=== PATIENT | female | born 1955 | race American Indian/Alaskan Native ===

== ENCOUNTER 2016-11-02 19:35 | Emergency (ER) | payer OTHER ==
[2016-11-02 23:08] LABS: Anion Gap 20 mmol/L; B-Hydroxybutyrate 1.1 mg/dL (0.2-2.8); Blood Urea Nitrogen 20 mg/dL (7-17); Calcium 9.7 mg/dL (8.4-10.2); Carbon Dioxide 24 mmol/L (22-30); Chloride 91.6 mmol/L (98-107); Glucose 413 mg/dL (65-100); Sodium 131 mmol/L (137-145)
[2016-11-02 23:15] LABS: Basophils % (Auto) 0.8 % (0.0-1.8); Eosinophils % (Auto) 1.4 % (0.0-4.3); Hematocrit 39.3 % (30.3-42.9); Hemoglobin 12.5 gm/dl (10.1-14.3); Mean Corpuscular HGB Conc 32 % (30-34); Mean Corpuscular Volume 77 fl (79-97); Platelet Count 233 K/mm3 (140-440); Red Cell Distribution Width 15.3 % (13.2-15.2)
[2016-11-02 23:24] LABS: Mean Corpuscular Hemoglobin 25 pg (28-32)
[2016-11-03 00:01] LABS: Mucus,Urine FEW /HPF
[2016-11-03 00:42] LABS: Bilirubin,Urine Negative (Negative); Blood,Urine Negative (Negative); Ketones,Urine Negative (Negative)
[2016-11-03 00:43] LABS: Leukocyte Esterase,Urine Negative (Negative); Nitrite,Urine Negative (Negative); Protein,Urine <30 mg dL mg/dL (Negative); Urobilinogen,Urine 0.2 mg/dL (<2.0)
[2016-11-03 00:52] VITALS: BP 186/90
[2016-11-03] MEDS ORDERED: TYLENOL PO ONE (00:55)
--- NOTE | 2016-11-04 01:10 | ED Elopement Review ---
ED Pt Elopement review - Results review Lab results: Laboratory Tests 11/02/16 11/02/16 11/02/16 20:00 22:30 22:30 WBC 7.0 RBC 5.10 H Hgb 12.5 Hct 39.3 MCV 77 L MCH 25 L MCHC 32 RDW 15.3 H Plt Count 233 Lymph % (Auto) 35.4 H [place] % (Auto) 8.3 H Eos % (Auto) 1.4 Baso % (Auto) 0.8 Lymph # 2.5 [place] # 0.6 Eos # 0.1 Baso # 0.1 Seg Neutrophils % 54.1 Seg Neutrophils # 3.8 VBG pH Sodium 131 L Potassium 5.0 Chloride 91.6 L Carbon Dioxide 24 Anion Gap 20 BUN 20 H Creatinine 0.8 Estimated GFR > 60 BUN/Creatinine Ratio 25.00 Glucose 413 H POC Glucose 279 H Calcium 9.7 Urine Color Urine Turbidity Urine pH Ur Specific [place] Urine Protein Urine Glucose (UA) Urine Ketones Urine Blood Urine Nitrite Ur Reducing Substances Urine Bilirubin Urine Ictotest Urine Urobilinogen Ur Leukocyte Esterase Urine WBC (Auto) Urine RBC (Auto) U Epithel Cells (Auto) Urine Mucus Ketones 1.1 11/02/16 11/02/16 22:30 22:45 WBC RBC Hgb Hct MCV MCH MCHC RDW Plt Count Lymph % (Auto) [place] % (Auto) Eos % (Auto) Baso % (Auto) Lymph # [place] # Eos # Baso # Seg Neutrophils % Seg Neutrophils # VBG pH 7.289 L Sodium Potassium Chloride Carbon Dioxide Anion Gap BUN Creatinine Estimated GFR BUN/Creatinine Ratio Glucose POC Glucose Calcium Urine Color Yellow Urine Turbidity Clear Urine pH 6.0 Ur Specific [place] 1.025 Urine Protein <30 mg dl Urine Glucose (UA) Trace Urine Ketones Negative Urine Blood Negative Urine Nitrite Negative Ur Reducing Substances Not Reportable Urine Bilirubin Negative Urine Ictotest Not Reportable Urine Urobilinogen 0.2 Ur Leukocyte Esterase Negative Urine WBC (Auto) 4.0 Urine RBC (Auto) 1.0 U Epithel Cells (Auto) 3.0 Urine Mucus Few Ketones - Call Back decision Pt Call Back Decision: No action required
== END 2016-11-03 00:52 | disposition left against medical advice (07) ==
LOC: ED 19:35
DX: R51 Headache (principal); R42 Dizziness and giddiness; R11.2 Nausea with vomiting, unspecified; R19.7 Diarrhea, unspecified; Z53.21 Procedure and treatment not carried out due to patient leaving prior to being seen by health care provider
CPT/HCPCS: 36415; 80048; 81001; 82010; 82805; 82962; 85025

== ENCOUNTER 2016-11-03 07:44 | Emergency (ER) | payer OTHER ==
[2016-11-03] MEDS ORDERED: CATAPRES PO ONE (10:29)
[2016-11-03] MEDS ORDERED: NACL 0.9% 1000 ML 1,000 ML IV ONE (10:36)
[2016-11-03] MEDS ORDERED: ZOFRAN IV ONE (10:36)
--- NOTE | 2016-11-03 10:41 | Emergency Department Report ---
HPI - General Chief Complaint: Dizziness Time Seen by Provider: 11/03/16 10:27 - HPI HPI: Jiménez 25 The patient is a 61-year-old female presenting with a chief complaint of dizziness. The patient states her symptoms began yesterday morning she felt dizzy upon awakening. The patient states she stood up and felt to the ground but never lost consciousness. The patient states she checked her blood sugar and found to be 380. Patient states she drank water began having nausea and vomiting. The patient states she had 4 episodes of diarrhea yesterday. Patient states she continued to feel dizzy and nauseous and noticed that her blood pressure was elevated. Patient subsequently went to [facility] for evaluation last night and from there was sent to the ED P. Patient states she has had a frontal headache since last night. The patient states she's been compliant with all of her medications Location: [see above] Duration: [see above] Quality: Dizziness Severity: Moderate Modifying factors: [see above] Context: [see above] Mode of transportation: Unknown ED Past Medical Hx - Past Medical History Previous Medical History?: Yes Hx Hypertension: Yes Hx Heart Attack/AMI: Yes (X 1 IN 2016) Hx Diabetes: Yes Hx of Cancer: Yes (Colon CA status post resection) Hx Headaches / Migraines: Yes - Surgical History Past Surgical History?: Yes Additional Surgical History: Partial colon resection/ 2 CARDIAC STENTS - Family History Family history: no significant - Social History Smoking Status: Never Smoker Substance Use Type: None (denies illicit drug use) - Medications Home Medications: Home Medications Medication Instructions Recorded Confirmed Last Taken Type Ascorbic Acid [Vitamin C] 500 mg PO DAILY 11/03/16 11/03/16 11/02/16 History Aspirin [Aspirin BABY CHEW TAB] 81 mg PO QDAY 11/03/16 11/03/16 11/02/16 History AtorvaSTATin [Lipitor] 20 mg PO QHS 11/03/16 11/03/16 11/01/16 History Biotin 1,000 mcg PO DAILY 11/03/16 11/03/16 11/02/16 History Cholecalciferol (Vitamin D3) 5,000 unit PO DAILY 11/03/16 11/03/16 11/02/16 History [Vitamin D3] Clopidogrel [Plavix] 75 mg PO QDAY 11/03/16 11/03/16 11/02/16 History ISOSORBIDE MONOnitrate [Imdur ER] 30 mg PO DAILY 11/03/16 11/03/16 11/02/16 History Meclizine [Antivert] 25 mg PO TID PRN #20 tablet 11/03/16 Unknown Rx Metoprolol [Lopressor TAB] 50 mg PO BID 11/03/16 11/03/16 11/02/16 History Multivits Min/Iron/FA/Herb#186 1 each PO DAILY 11/03/16 11/03/16 11/02/16 History [Hair, Skin and Nails Caplet] Ondansetron [Zofran ODT TAB] 8 mg PO Q8HR #20 tab.rapdis 11/03/16 Unknown Rx Pantoprazole [Protonix] 40 mg PO QDAY 11/03/16 11/03/16 11/02/16 History Sertraline [Zoloft] 50 mg PO QDAY 11/03/16 11/03/16 11/02/16 History Turmeric Root Extract [Turmeric] 500 mg PO DAILY 11/03/16 11/03/16 11/02/16 History Vitamin B Complex [Super B-50 1 each PO DAILY 11/03/16 11/03/16 11/02/16 History Complex] glipiZIDE [glipiZIDE ER] 5 mg PO QAM 11/03/16 11/03/16 11/02/16 History metFORMIN [Glucophage] 500 mg PO BID 11/03/16 11/03/16 11/02/16 History ED Review of Systems ROS: Stated complaint: DIZZY/BP/DIABETIC Other details as noted in HPI Comment: All other systems reviewed and negative Constitutional: denies: chills, fever Eyes: denies: eye pain, eye discharge, vision change ENT: denies: ear pain, throat pain Respiratory: denies: cough, shortness of breath, wheezing Cardiovascular: denies: chest pain, palpitations Endocrine: no symptoms reported Gastrointestinal: nausea, vomiting, diarrhea Genitourinary: denies: urgency, dysuria, discharge Musculoskeletal: denies: back pain, joint swelling, arthralgia Skin: denies: rash, lesions Neurological: headache, other (dizziness) Psychiatric: denies: anxiety, depression Hematological/Lymphatic: denies: easy bleeding, easy bruising Physical Exam - Physical Exam Vital Signs: Vital Signs 11/03/16 11/03/16 07:51 09:10 Temperature 97.8 F Pulse Rate 86 81 Respiratory 20 16 Rate Blood Pressure 184/95 Blood Pressure 171/86 [Left] O2 Sat by Pulse 100 98 Oximetry Physical Exam: GENERAL: The patient is well-developed well-nourished female lying on stretcher not appearing to be in acute distress. [] HEENT: Normocephalic. Atraumatic. Extraocular motions are intact. Patient has moist mucous membranes. No nystagmus NECK: Supple. Trachea midline CHEST/LUNGS: Clear to auscultation. There is no respiratory distress noted. HEART/CARDIOVASCULAR: Regular. There is no tachycardia. There is no gallop rub or murmur. ABDOMEN: Abdomen is soft, nontender. Patient has normal bowel sounds. There is no abdominal distention. SKIN: There is no rash. There is no edema. There is no diaphoresis. NEURO: The patient is awake, alert, and oriented. The patient is cooperative. The patient has no focal neurologic deficits. The patient has normal speech. Cranial nerves II through XII grossly intact, no drift. No dysmetria noted with [id number] bilaterally MUSCULOSKELETAL: There is no evidence of acute injury. ED Course Vital Signs 11/03/16 11/03/16 07:51 09:10 Temperature 97.8 F Pulse Rate 86 81 Respiratory 20 16 Rate Blood Pressure 184/95 Blood Pressure 171/86 [Left] O2 Sat by Pulse 100 98 Oximetry ED Medical Decision Making - Lab Data Result diagrams: 11/03/16 12:07 11/03/16 12:07 Laboratory Tests 11/03/16 11/03/16 11/03/16 09:09 12:07 12:07 WBC 5.1 RBC 5.17 H Hgb 12.5 Hct 39.9 MCV 77 L MCH 24 L MCHC 31 RDW 15.5 H Plt Count 214 Lymph % (Auto) 34.2 [place] % (Auto) 8.7 H Eos % (Auto) 1.8 Baso % (Auto) 0.6 Lymph # 1.7 [place] # 0.4 Eos # 0.1 Baso # 0.0 Seg Neutrophils % 54.7 Seg Neutrophils # 2.8 Sodium 134 L Potassium 4.0 Chloride 97.0 L Carbon Dioxide 22 Anion Gap 19 BUN 15 Creatinine 0.6 L Estimated GFR > 60 BUN/Creatinine Ratio 25.00 Glucose 289 H POC Glucose 322 H Calcium 8.9 Total Creatine Kinase 61 CK-MB (CK-2) 1.6 CK-MB (CK-2) Rel Index 2.6 Laboratory Tests 11/03/16 11/03/16 11/03/16 09:09 12:07 12:07 WBC 5.1 RBC 5.17 H Hgb 12.5 Hct 39.9 MCV 77 L MCH 24 L MCHC 31 RDW 15.5 H Plt Count 214 Lymph % (Auto) 34.2 [place] % (Auto) 8.7 H Eos % (Auto) 1.8 Baso % (Auto) 0.6 Lymph # 1.7 [place] # 0.4 Eos # 0.1 Baso # 0.0 Seg Neutrophils % 54.7 Seg Neutrophils # 2.8 Sodium 134 L Potassium 4.0 Chloride 97.0 L Carbon Dioxide 22 Anion Gap 19 BUN 15 Creatinine 0.6 L Estimated GFR > 60 BUN/Creatinine Ratio 25.00 Glucose 289 H POC Glucose 322 H Calcium 8.9 Total Creatine Kinase 61 CK-MB (CK-2) 1.6 CK-MB (CK-2) Rel Index 2.6 Troponin T 11/03/16 12:07 WBC RBC Hgb Hct MCV MCH MCHC RDW Plt Count Lymph % (Auto) [place] % (Auto) Eos % (Auto) Baso % (Auto) Lymph # [place] # Eos # Baso # Seg Neutrophils % Seg Neutrophils # Sodium Potassium Chloride Carbon Dioxide Anion Gap BUN Creatinine Estimated GFR BUN/Creatinine Ratio Glucose POC Glucose Calcium Total Creatine Kinase CK-MB (CK-2) CK-MB (CK-2) Rel Index Troponin T < 0.010 - EKG Data -: EKG Interpreted by Mt EKG shows normal: sinus rhythm Rate: normal - EKG Data When compared to previous EKG there are: no significant change Interpretation: unchanged when compared t (05/26/2011) - Radiology Data Radiology results: report reviewed (CT head), image reviewed (CT head) CT head (read by radiologist)-no acute intracranial process - Differential Diagnosis hypertensive urgency, vertigo, Critical care attestation.: If time is entered above; I have spent that time in minutes in the direct care of this critically ill patient, excluding procedure time. ED Disposition Clinical Impression: Headache, Dizziness Disposition: DISCHARGED TO HOME OR SELFCARE Is pt being admited?: No Does the pt Need Aspirin: No Condition: Stable Instructions: Acute Headache (ED), Dizziness (ED), Vertigo (ED) Additional Instructions: Return to the emergency department immediately should you develop worsening symptoms, fever, inability to tolerate food or liquid or any other concerns. Prescriptions: Meclizine [Antivert] 25 mg PO TID PRN #20 tablet PRN Reason: Vertigo Ondansetron [Zofran ODT TAB] 8 mg PO Q8HR #20 tab.vikas Referrals: PRIMARY CARE, [Primary Care Provider] - 3-5 Days AMANUEL BURGESS MD [Staff Physician] - 3-5 Days (Dr. Burgess is a neurologist. Please follow up with him for further evaluation) Time of Disposition: 13:27
--- NOTE | 2016-11-03 10:56 | Cat Scan Report ---
CT HEAD WITHOUT CONTRAST: HISTORY: Headache. Serial contiguous axial images were obtained through the cranium. Intravenous contrast material was not administered. The ventricles are normal in size and appearance. There is no mass effect or midline shift. No evidence for hemorrhage or extra-axial fluid collection. 1 cm chronic focal infarct in the left bowden radiata and 1.6 x 0.6 cm focal infarct in the left subinsular region are noted. No mass lesion is seen. The mastoid air cells and visualized portions of the sinuses are normal. IMPRESSION: No acute intracranial process. Chronic focal infarcts in the left bowden radiata and left subinsular region. These findings are new since the CT dated 05/26/11.
[2016-11-03 12:35] LABS: Basophils % (Auto) 0.6 % (0.0-1.8); Eosinophils % (Auto) 1.8 % (0.0-4.3); Hematocrit 39.9 % (30.3-42.9); Hemoglobin 12.5 gm/dl (10.1-14.3); Mean Corpuscular HGB Conc 31 % (30-34); Mean Corpuscular Volume 77 fl (79-97); Platelet Count 214 K/mm3 (140-440); Red Blood Count 5.17 M/mm3 (3.65-5.03); Red Cell Distribution Width 15.5 % (13.2-15.2); White Blood Count 5.1 K/mm3 (4.5-11.0)
[2016-11-03 12:39] LABS: Mean Corpuscular Hemoglobin 24 pg (28-32)
[2016-11-03 12:51] LABS: Anion Gap 19 mmol/L; Blood Urea Nitrogen 15 mg/dL (7-17); Calcium 8.9 mg/dL (8.4-10.2); Carbon Dioxide 22 mmol/L (22-30); Creatine Kinase 61 units/L (30-135); Creatine Kinase MB 1.6 ng/mL (0.0-4.0); Glucose 289 mg/dL (65-100); Sodium 134 mmol/L (137-145)
[2016-11-03 13:46] VITALS: BP 165/76
== END 2016-11-03 13:45 | disposition home or self-care (01) ==
LOC: ED 07:44
DX: R51 Headache (principal); R42 Dizziness and giddiness; I10 Essential (primary) hypertension; I25.2 Old myocardial infarction; E11.9 Type 2 diabetes mellitus without complications; G43.909 Migraine, unspecified, not intractable, without status migrainosus; Z85.038 Personal history of other malignant neoplasm of large intestine
CPT/HCPCS: 36415; 70450; 80048; 82550; 82553; 82962; 84484; 85025; 93005; 93010; 96361; 96374; 99284; J2405; J7030

== ENCOUNTER 2017-05-18 07:34 | Day surgery (SDC) | payer OTHER ==
[2017-05-18 08:25] LABS: Basophils % (Auto) 0.3 % (0.0-1.8); Eosinophils % (Auto) 1.5 % (0.0-4.3); Hematocrit 33.3 % (30.3-42.9); Hemoglobin 10.7 gm/dl (10.1-14.3); Mean Corpuscular HGB Conc 32 % (30-34); Mean Corpuscular Volume 75 fl (79-97); Platelet Count 242 K/mm3 (140-440); Red Blood Count 4.47 M/mm3 (3.65-5.03); Red Cell Distribution Width 15.8 % (13.2-15.2); White Blood Count 5.6 K/mm3 (4.5-11.0)
[2017-05-18 08:33] LABS: Mean Corpuscular Hemoglobin 24 pg (28-32)
[2017-05-18 08:37] LABS: INR 0.95 (0.87-1.13)
[2017-05-18 08:45] LABS: Anion Gap 19 mmol/L; BUN/Creatinine Ratio 24.44; Blood Urea Nitrogen 22 mg/dL (7-17); Calcium 8.9 mg/dL (8.4-10.2); Carbon Dioxide 27 mmol/L (22-30); Chloride 93.7 mmol/L (98-107); Glucose 275 mg/dL (65-100); Potassium 3.7 mmol/L (3.6-5.0); Sodium 136 mmol/L (137-145)
[2017-05-18] MEDS ORDERED: NACL 0.9% 500 ML 500 ML IV SCH (09:00)
[2017-05-18] MEDS ORDERED: HEPARIN/NS 5000 UNIT/500ML(CATH LAB) 1,000 ML IR ONE (10:01)
[2017-05-18] MEDS ORDERED: VERSED ONE (10:01)
[2017-05-18] MEDS ORDERED: SUBLIMAZE ONE (10:02)
[2017-05-18] MEDS ORDERED: XYLOCAINE 2% INFILTRATI ONE (10:04)
[2017-05-18] MEDS ORDERED: HEPARIN 10,000 UNITS/10 ML ONE (10:16)
[2017-05-18] MEDS ORDERED: NACL 0.9% 1000 ML 1,000 ML IV SCH (11:00)
--- NOTE | 2017-05-18 11:40 | Discharge Summary ---
Short Stay Discharge Plan Activity: advance as tolerated Weight Bearing Status: Partial Weight Bearing Diet: low fat, low cholesterol, low salt, diabetic Wound: keep clean and dry Special Instructions: no heavy lifting (3 days), hold Metformin (48hrs) Follow up with: LUIS MANUEL MD [Primary Care Provider] - 7 Days JACOB ABRAMS MD [Staff Physician] - 7 Days
[2017-05-18] MEDS ORDERED: ULTRAM PO PRN (13:35)
--- NOTE | 2017-05-18 14:02 | Cardiac Catherization Report ---
CARDIAC CATHETERIZATION REPORT REASON FOR PROCEDURE: History of coronary artery disease, chest pain and abnormal thallium stress test. PROCEDURE: The patient was prepped and draped in a sterile fashion after informed consent. The right femoral artery was entered using the Seldinger technique followed by placement of a 6-[place] sheath. Selective left and right coronary angiography was performed using #4 right and left Alyssia catheters. Angiography of the left ventricle was performed using a pigtail catheter. The catheters were removed, sheath removed, and hemostasis achieved using an Angio-Seal device. The patient was returned to the postprocedure unit in stable condition. There were no complications. FINDINGS: HEMODYNAMICS: Left ventricular end diastolic pressure was 18. This was following coronary angiography. Ascending aortic pressure 160/79. There was no significant pressure gradient on pullback across the aortic valve. CORONARY ANGIOGRAPHY: The left main coronary artery was free of significant disease. The left anterior descending artery contained an ostial, 30-40% stenosis. Following that, another 60-70% stenosis of the proximal LAD was noted, just after the origin of a medium size first diagonal branch. The mid LAD was also notable for another, 70-80% stenosis, just following the origin of another mid diagonal branch. The proximal circumflex artery was notable for a long, irregular 70-80% stenosis. Following this, there was a stent located in the mid portion of the mid obtuse marginal branch. The stented segment was notable for a 70-80% in-stent restenosis. The right coronary artery was a relatively small caliber, but dominant vessel. There was a patent stent in the proximal right coronary artery, but following that, there was a long segment of severe diffuse disease with an up to 85-90% luminal stenosis of the mid vessel before the acute margin. There was overall, mild left ventricular systolic dysfunction with ejection fraction 40-45%. There was a focal segment of severe hypokinesis of the mid inferior wall. CONCLUSIONS: 1. Severe 3-vessel coronary disease. 2. Moderately severe in-stent restenosis of the mid obtuse marginal artery stent. 3. Patent proximal right coronary artery stent. 4. Additional major finding is of severe progression of multivessel disease outside the stented segments. 5. Mild left ventricular systolic dysfunction, ejection fraction 40-45%. RECOMMENDATIONS: In recognition of the patient's progressive De Duglas disease in multiple vessels, diabetic status and underlying left ventricular dysfunction, multivessel revascularization with coronary artery bypass surgery is likely the optimal strategy. JOB# [id number] CAROLINE/TAMMY
[2017-05-18 14:20] VITALS: BP 128/63
== END 2017-05-18 14:30 | disposition home or self-care (01) ==
LOC: CATHLABREC 07:34
PROVIDERS: ATTEND Internal Medicine Cardiovascular Disease
DX: I25.10 Atherosclerotic heart disease of native coronary artery without angina pectoris (principal); E11.9 Type 2 diabetes mellitus without complications; K21.9 Gastro-esophageal reflux disease without esophagitis; E78.5 Hyperlipidemia, unspecified; I10 Essential (primary) hypertension; Z88.8 Allergy status to other drugs, medicaments and biological substances; Z79.84 Long term (current) use of oral hypoglycemic drugs; Z79.899 Other long term (current) drug therapy; Z79.82 Long term (current) use of aspirin; Z79.01 Long term (current) use of anticoagulants; Z85.038 Personal history of other malignant neoplasm of large intestine; Z95.5 Presence of coronary angioplasty implant and graft; Z98.890 Other specified postprocedural states; Z82.49 Family history of ischemic heart disease and other diseases of the circulatory system
CPT/HCPCS: 36415; 80048; 85025; 85610; 85730; 93005; 93010; 93458; C1760; C1894; J1644; J2250; J3010; J7040; Q9967

== ENCOUNTER 2018-01-08 12:07 | Day surgery (SDC) | payer OTHER ==
[2018-01-08] MEDS ORDERED: NACL 0.9% 1000 ML 1,000 ML IV SCH (14:00)
--- NOTE | 2018-01-08 15:07 | Anesthesia Day of Surgery ---
Anesthesia Day of Surgery - Day of Surgery Patient Examined: Yes Patient H&P Reviewed: Yes Patient is NPO: Yes Beta Blockers: Yes
--- NOTE | 2018-01-08 15:07 | Anesthesia Consultation ---
Anesthesia Consult and Med Hx Date of service: 01/08/18 - Airway Anesthetic Teeth Evaluation: Good, Chipped (upper front) ROM Head & Neck: Adequate Mental/Hyoid Distance: Adequate Mallampati Class: Class II Intubation Access Assessment: Probably Good - Pre-Operative Health Status ASA Pre-Surgery Classification: ASA3 Proposed Anesthetic Plan: MAC - Pulmonary Hx Smoking: No Hx Sleep Apnea: No - Cardiovascular System Hx Hypertension: Yes Hx Coronary Artery Disease: Yes (CABG x 3 (05/2017)) Hx Heart Attack/AMI: Yes (OCTOBER 2015) Hx Angina: Yes Hx Percutaneous Transluminal Coronary Angioplasty (PTCA): Yes Hx Peripheral Vascular Disease: No - Central Nervous System Hx Psychiatric Problems: Yes - Endocrine Hx Non-Insulin Dependent Diabetes: Yes - Hematic Hx Anemia: No Hx Sickle Cell Disease: No - Other Systems Hx Alcohol Use: No Hx Substance Use: No Hx Cancer: Yes
[2018-01-08] MEDS ORDERED: DIPRIVAN 10 MG/ML IV ONE ×2 (16:09)
[2018-01-08] MEDS ORDERED: WATER FOR IRRIG STERILE ONE (16:24)
[2018-01-08 17:26] VITALS: BP 135/82
--- NOTE | 2018-01-08 18:15 | Operative Report ---
Operative Report Operative Report: Date of procedure: 01/08/2018 Procedure: Colonoscopy with Multiple Snare polypectomies,Hot Biopsy Polypectomies, Ablation of multiple diminutive rectal polyps and Submucosal injection of multiple sigmoid colon polyps. Attending physician: Real Santoro MD Melter Supervisor: Real Santoro MD Indication: Patient is a 62-year-old female who presents for screening colonoscopy. This colonoscopy serves to evaluate patient so that treatment may be directed based on the findings. Consent: Informed consent was obtained after advising the patient and family regarding nature of this procedure, its indications, potential benefits as well as possible complications including but not limited to bleeding perforation and adverse reaction to medication, infection as well as other cardiopulmonary complications. An informed written and verbal consent was then obtained after due opportunity was provided for questions and answers. Monitoring: Patient was monitored continuously with pulse oximetry and electrocardiographic recordings as well as blood pressure recordings. Vital signs remained stable throughout this procedure with no untoward events. Preoperative assessment: Patient was assessed immediately prior to this procedure for capacity to tolerate monitored anesthesia care and moderate sedation as well as general anesthesia. Patient's ASA classification is 2, Mallampati class is 2, Hyomental distance is 3. Instrument: Kidlandian video colonoscope Medications: Propofol given intravenously in divided doses. For details please refer to anesthesia records. Description of procedure: Patient was placed in the left lateral decubitus position after achieving sedation, a digital rectal examination was performed following which the colonoscope was introduced into the anal verge and advanced to the cecum which was identified by the cecal valve, the appendiceal orifice, as well as by the cecal strap and direct transillumination. The colonoscope was subsequently withdrawn with careful inspection of all mucosal surfaces. Patient tolerated this procedure well and was subsequently taken to the recovery room. The following findings were noted. Findings: Patient had thick liquid stool seen in various sections of the colon which was vigorously irrigated. There were 2 broad-based sessile polyps seen in the sigmoid colon. These were elevated with submucosal injection of saline and subsequently removed by snare electrocautery. Both polyps were retrieved. There was a 7-8 mm polyp which was sessile in the transverse colon and was removed by hot biopsy polypectomy. There were multiple diminutive flat polyps in the rectum which were ablated. In all there were 3 diminutive flat polyps in the rectum. Patient was noted to have internal hemorrhoids seen on the retroflexed view at the anal verge. Impression: Sigmoid colon polyps status post submucosal injection of saline and snare polypectomy . Transverse colon polyp status post hot biopsy polypectomy. Rectal polyps status post ablation. Internal hemorrhoids. Retained stool Plan: Follow pathology report. High-fiber diet. Repeat colonoscopy in 5 years if polyps are adenomatous
--- NOTE | 2018-01-08 18:16 | Discharge Summary ---
Short Stay Discharge Plan Activity: advance as tolerated Weight Bearing Status: Weight Bear as Tolerated Diet: regular Additional Instructions: Post Sedation D/C Instructions When you return home you may resume your regular diet unless otherwise directed. Go directly home from the hospital and rest quietly. You may resume normal activities tomorrow. Do NOT drive, return to work, operate any machinery or make any important personal or business decisions today. Do NOT drink any alcohol or take nerve or sleeping drugs. They add to the effects of the medicine still present in your body. Follow up with: LUIS MANUEL MD [Primary Care Provider] - 7 Days
== END 2018-01-08 17:20 | disposition home or self-care (01) ==
LOC: GIO 12:07
PROVIDERS: ATTEND Internal Medicine Gastroenterology
DX: D12.5 Benign neoplasm of sigmoid colon (principal); K63.5 Polyp of colon; K64.8 Other hemorrhoids; K59.00 Constipation, unspecified; I10 Essential (primary) hypertension; I25.10 Atherosclerotic heart disease of native coronary artery without angina pectoris; I25.2 Old myocardial infarction; E11.9 Type 2 diabetes mellitus without complications; Z90.710 Acquired absence of both cervix and uterus; Z98.890 Other specified postprocedural states; Z90.49 Acquired absence of other specified parts of digestive tract; Z79.82 Long term (current) use of aspirin; Z88.8 Allergy status to other drugs, medicaments and biological substances; Z79.899 Other long term (current) drug therapy; Z95.1 Presence of aortocoronary bypass graft
CPT/HCPCS: 45384; 45388; 45390; 82962; 88305; J2704; J7030

== ENCOUNTER 2019-04-30 04:03 | Inpatient (IN) | payer OTHER ==
[2019-04-30 06:41] LABS: Basophils % (Auto) 0.8 % (0.0-1.8); Eosinophils # (Auto) 0.2 K/mm3 (0.0-0.4); Eosinophils % (Auto) 2.6 % (0.0-4.3); Hematocrit 33.6 % (30.3-42.9); Hemoglobin 10.6 gm/dl (10.1-14.3); Lymphocytes # (Auto) 1.7 K/mm3 (1.2-5.4); Lymphocytes % (Auto) 29.1 % (13.4-35.0); Mean Corpuscular HGB Conc 32 % (30-34); Mean Corpuscular Volume 76 fl (79-97); Monocytes # (Auto) 0.5 K/mm3 (0.0-0.8); Monocytes % (Auto) 8.7 % (0.0-7.3); Platelet Count 216 K/mm3 (140-440); Red Blood Count 4.43 M/mm3 (3.65-5.03); Red Cell Distribution Width 16.3 % (13.2-15.2)
--- NOTE | 2019-04-30 06:48 | XRay Report ---
CHEST 2 VIEWS INDICATION / CLINICAL INFORMATION: sob. COMPARISON: None available. FINDINGS: SUPPORT DEVICES: None. HEART / MEDIASTINUM: The cardiac silhouette is mildly enlarged with sternotomy changes. LUNGS / PLEURA: Diffuse bilateral pulmonary opacities are present without a significant pleural effus ion. No pneumothorax. ADDITIONAL FINDINGS: No significant additional findings. IMPRESSION: 1. Nonspecific diffuse bilateral pulmonary opacities could represent chronic interstitial lung diseas e or an acute infiltrative process. Please correlate with the clinical findings. 2. Mild cardiomegaly. Signer Name: Yuri Mckeon MD Signed: 04/30/2019 6:44 AM Workstation Name: [id number]
--- NOTE | 2019-04-30 06:57 | Emergency Department Report ---
ED Chest Pain HPI - General Chief Complaint: Dyspnea/Respdistress Stated Complaint: MARIBETH Time Seen by Provider: 04/30/19 06:10 Source: patient, old records reviewed (cath here 05/18/17 prior to cabg EF 40- 45%, severe 3 vessel dz ) Mode of arrival: Ambulatory Limitations: No Limitations - History of Present Illness Initial Comments: 63-year-old female with a past medical history of diabetes, CAD with cardiac stent 2 and CABG 3, hypertension, and CHF with last documented EF of 40-45% since the hospital complains of intermittent chest pain and shortness of breath for 3 days. Patient has been experiencing intermittent substernal chest pressure while at rest for the past 3 days. Positive associated dyspnea and diaphoresis with episodes. Increased fatigue reported. She denies nausea, vomiting, palpitations, or syncope. She is also experiencing increased swelling to her ankles and feet, dyspnea on exertion, and this evening at 3 AM woke up from sleep short of breath. At her baseline patient is able to lay flat and states she is not currently on diuretic treatment however she has been on diuretics in the past. She has been noncompliant with her diabetes medication Victoza and atorvastatin 1 week but has otherwise been compliant with her other medications which include aspirin and Plavix. She complains of occasional nonproductive cough denies fever or chills. Traveling Operator: Dr. Chavira - Related Data Home Medications Medication Instructions Recorded Confirmed Last Taken Aspirin [Aspirin BABY CHEW TAB] 81 mg PO QDAY 11/03/16 01/08/18 01/03/18 AtorvaSTATin [Lipitor] 20 mg PO QHS 11/03/16 01/08/18 01/06/18 Metoprolol [Lopressor TAB] 50 mg PO BID 11/03/16 01/08/18 01/08/18 09:30 Pantoprazole [Protonix TAB] 40 mg PO QDAY 11/03/16 01/08/18 01/06/18 Sertraline [Zoloft] 50 mg PO HS 11/03/16 01/08/18 01/06/18 Clopidogrel Bisulfate [Clopidogrel] 75 mg PO DAILY 08/04/17 01/08/18 01/03/18 Liraglutide [Victoza 2-Hunter] 1.2 mg SQ QHS 01/08/18 01/08/18 01/06/18 Losartan [Cozaar] 50 mg PO BID 01/08/18 01/08/18 01/08/18 09:30 Metformin HCl [Metformin HCl ER] 1,000 mg PO QDAY 01/08/18 01/08/18 01/06/18 Allergies Allergy/AdvReac Type Severity Reaction Status Date / Time lisinopril AdvReac COUGH Verified 01/08/18 13:53 Heart Score - HEART Score History: Moderately suspicious EKG: Normal Age: 45-65 Risk factors: > 3 risk factors or hx of atherosclerotic disease Troponin: < normal limit HEART Score: 4 ED Review of Systems ROS: Stated complaint: MARIBETH Other details as noted in HPI Comment: All other systems reviewed and negative ED Past Medical Hx - Past Medical History Previous Medical History?: Yes Hx Hypertension: Yes Hx Heart Attack/AMI: Yes (OCTOBER 2015) Hx Congestive Heart Failure: No Hx Diabetes: Yes Hx Sickle Cell Disease: No Hx Headaches / Migraines: Yes Hx HIV: No - Surgical History Past Surgical History?: Yes Hx Coronary Stent: Yes (x2) Hx Open Heart Surgery: Yes (2017 CABAG x 3) Additional Surgical History: Partial colon resection/ 2 CARDIAC STENTS - Social History Smoking Status: Never Smoker Substance Use Type: None - Medications Home Medications: Home Medications Medication Instructions Recorded Confirmed Last Taken Type Aspirin [Aspirin BABY CHEW TAB] 81 mg PO QDAY 11/03/16 01/08/18 01/03/18 History AtorvaSTATin [Lipitor] 20 mg PO QHS 11/03/16 01/08/18 01/06/18 History Metoprolol [Lopressor TAB] 50 mg PO BID 11/03/16 01/08/18 01/08/18 09:30 History Pantoprazole [Protonix TAB] 40 mg PO QDAY 11/03/16 01/08/18 01/06/18 History Sertraline [Zoloft] 50 mg PO HS 11/03/16 01/08/18 01/06/18 History Clopidogrel Bisulfate [Clopidogrel] 75 mg PO DAILY 08/04/17 01/08/18 01/03/18 History Liraglutide [Victoza 2-Hunter] 1.2 mg SQ QHS 01/08/18 01/08/18 01/06/18 History Losartan [Cozaar] 50 mg PO BID 01/08/18 01/08/18 01/08/18 09:30 History Metformin HCl [Metformin HCl ER] 1,000 mg PO QDAY 01/08/18 01/08/18 01/06/18 History ED Physical Exam - General Limitations: No Limitations - Other Other exam information: General: No limitations, patient is alert in no acute distress Head exam: Atraumatic, normocephalic Eyes exam: Normal appearance ENT: Moist mucous membrane Neck exam: Normal inspection, full range of motion, no meningismus nontender Respiratory exam: Bibasilar crackles on exam without wheezing, rales, tachypnea, or accessory muscle use Cardiovascular: Normal rate and rhythm, CABG scar noted Abdomen: Soft, nondistended, and nontender, with normal bowel sounds, no rebound, or guarding Extremity: Full range of motion, trace to 1+ pitting edema to ankles and distal leg. No calf tenderness on examination Back: Normal Inspection, full range of motion, no tenderness Neurologic: Alert, oriented x3, cranial nerves intact, no motor or sensory deficit Psychiatric: normal affect, normal mood Skin: Warm, dry, intact ED Course Vital Signs 04/30/19 04/30/19 04/30/19 04:04 04:08 04:22 Temperature 97.4 F L 97.4 F L Pulse Rate 82 82 82 Respiratory 18 18 14 Rate Blood Pressure 184/96 184/94 O2 Sat by Pulse 92 92 93 Oximetry 04/30/19 04/30/19 04/30/19 04:30 04:45 05:00 Temperature Pulse Rate 72 74 71 Respiratory 17 25 H 29 H Rate Blood Pressure 166/85 167/81 165/79 O2 Sat by Pulse 94 96 93 Oximetry 04/30/19 04/30/19 04/30/19 05:15 05:30 05:45 Temperature Pulse Rate 70 72 70 Respiratory 28 H 24 24 Rate Blood Pressure 166/78 173/84 162/80 O2 Sat by Pulse 94 96 95 Oximetry 04/30/19 04/30/19 04/30/19 06:00 06:31 07:00 Temperature Pulse Rate 70 76 71 Respiratory 21 29 H 24 Rate Blood Pressure 162/80 162/80 168/79 O2 Sat by Pulse 96 98 96 Oximetry 04/30/19 07:30 Temperature Pulse Rate 65 Respiratory 24 Rate Blood Pressure 168/72 O2 Sat by Pulse 95 Oximetry ED Medical Decision Making - Lab Data Result diagrams: 04/30/19 06:28 04/30/19 06:28 - EKG Data -: EKG Interpreted by Me EKG shows normal: sinus rhythm, axis (qrs 41), QRS complexes (qrsd 89), ST-T waves (no stemi) Rate: normal (69) - EKG Data When compared to previous EKG there are: no significant change - Radiology Data Radiology results: report reviewed CHEST 2 VIEWS INDICATION / CLINICAL INFORMATION: sob. COMPARISON: None available. FINDINGS: SUPPORT DEVICES: None. HEART / MEDIASTINUM: The cardiac silhouette is mildly enlarged with sternotomy changes. LUNGS / PLEURA: Diffuse bilateral pulmonary opacities are present without a significant pleural effusion. No pneumothorax. ADDITIONAL FINDINGS: No significant additional findings. IMPRESSION: 1. Nonspecific diffuse bilateral pulmonary opacities could represent chronic interstitial lung disease or an acute infiltrative process. Please correlate with the clinical findings. 2. Mild cardiomegaly. - Medical Decision Making Clinically patient appears to have CHF exacerbation given a combination of symptoms. Also possibility of unstable angina. Patient does not have chest pain currently in the ED and there are no signs of ST elevation PR, ST depression, or elevated troponin. She received 1 dose of IV Lasix and by mouth aspirin. Case discussed with warp dresser. Hospitalist informed for admission nitro paste placed to chest wall as well - Differential Diagnosis CHF exacerbation, unstable angina, PR, bronchitis, pneumonia Critical Care Time: No Critical care attestation.: If time is entered above; I have spent that time in minutes in the direct care of this critically ill patient, excluding procedure time. ED Disposition Clinical Impression: Chest pain, Dyspnea, CHF exacerbation, S/P CABG x 3, H/O heart artery stent Disposition: OP ADMIT IP TO THIS HOSP Is pt being admited?: Yes Condition: Stable Instructions: Chest Pain (ED) Referrals: PRIMARY CARE, [Primary Care Provider] - 3-5 Days Time of Disposition: 07:16 (Dr Vaughn/hosp)
[2019-04-30 07:05] LABS: Alanine Aminotransferase 32 units/L (7-56); Albumin 3.6 g/dL (3.9-5); BUN/Creatinine Ratio 11; Blood Urea Nitrogen 14 mg/dL (7-17); Hemolysis Index 3
[2019-04-30] MEDS ORDERED: LASIX IV ONE (07:09)
[2019-04-30] MEDS ORDERED: ASPIRIN PO ONE (07:15)
[2019-04-30] MEDS ORDERED: NITRO-BID 2% TP ONE ×2 (08:16→08:47)
[2019-04-30 09:25] LABS: Bilirubin,Urine NEG (Negative); Blood,Urine NEG (Negative); Color,Urine Straw (Yellow); Protein,Urine <15 mg/dL mg/dL (Negative); Urobilinogen,Urine < 2.0 mg/dL (<2.0)
[2019-04-30] MEDS ORDERED: TYLENOL PO PRN (09:32)
[2019-04-30] MEDS ORDERED: D50W (25GM) Syringe IV PRN ×2 (09:32→13:06)
[2019-04-30] MEDS ORDERED: NARCAN 0.4 MG/1 ML IV PRN (09:32)
[2019-04-30] MEDS ORDERED: MORPHINE IV PRN (09:32)
[2019-04-30] MEDS ORDERED: SODIUM CHLORIDE FLUSH SYRINGE 10 ML IV PRN (09:32)
[2019-04-30] MEDS ORDERED: ZOFRAN IV PRN (09:32)
[2019-04-30] MEDS ORDERED: NITROSTAT SL PRN (09:32)
[2019-04-30 09:33] LABS: WBC,Urine < 1.0 /HPF (0.0-6.0)
[2019-04-30] MEDS ORDERED: PEPCID IV SCH (10:00)
[2019-04-30] MEDS ORDERED: PLAVIX PO SCH (10:00)
[2019-04-30] MEDS ORDERED: ALUM-MAG HYDROX-SIMETH 200-200-20MG/5ML PO PRN (10:00)
[2019-04-30] MEDS ORDERED: COZAAR PO SCH (11:00)
--- NOTE | 2019-04-30 11:29 | Consultation ---
History of Present Illness Consult date: 04/30/19 Consult reason: congestive heart failure, shortness of breath History of present illness: This is a 63-year old woman with coronary artery disease with 3 vessel bypass surgery done at [place] in 2017. A follow-up echocardiogram a year ago reports a normal left ventricular systolic function, ejection fraction 55%. Patient presents to this hospital with complaint of progressive shortness of breath and lower extremity edema. She denies chest pain and denies palpitations. Chest x- ray reports mild interstitial edema. An ECG shows sinus rhythm, no acute ischemic changes. A cardiac consultation has been requested for evaluation of CHF. Medications and Allergies Allergies Allergy/AdvReac Type Severity Reaction Status Date / Time lisinopril AdvReac COUGH Verified 01/08/18 13:53 Home Medications Medication Instructions Recorded Confirmed Last Taken Type Aspirin [Aspirin BABY CHEW TAB] 81 mg PO QDAY 11/03/16 04/30/19 01/03/18 History AtorvaSTATin [Lipitor] 20 mg PO QHS 11/03/16 04/30/19 01/06/18 History Metoprolol [Lopressor TAB] 50 mg PO BID 11/03/16 04/30/19 01/08/18 09:30 History Pantoprazole [Protonix TAB] 40 mg PO QDAY 11/03/16 04/30/19 01/06/18 History Sertraline [Zoloft] 50 mg PO HS 11/03/16 04/30/19 01/06/18 History Clopidogrel Bisulfate [Clopidogrel] 75 mg PO DAILY 08/04/17 04/30/19 01/03/18 History Liraglutide [Victoza 2-Hunter] 1.2 mg SQ QHS 01/08/18 04/30/19 01/06/18 History Losartan [Cozaar] 50 mg PO BID 01/08/18 04/30/19 01/08/18 09:30 History Metformin HCl [Metformin HCl ER] 500 mg PO QDAY 01/08/18 04/30/19 01/06/18 H istory Active Meds: Active Medications Acetaminophen (Tylenol) 650 mg PO Q4H PRN PRN Reason: Pain MILD(1-3)/Fever >100.5/CALIXTO Al Hydrox/Mg Hydrox/Simethicone (Alum-Mag Hydrox-Simeth 760-723-05qt/5ml) 30 ml PO Q4H PRN PRN Reason: Indigestion Aspirin (Baby Aspirin) 81 mg PO QDAY COUNT INCLUDES THE [facility] Atorvastatin Calcium (Lipitor) 20 mg PO QHS COUNT INCLUDES THE [facility] Clopidogrel Bisulfate (Plavix) 75 mg PO QDAY COUNT INCLUDES THE [facility] Dextrose (D50w (25gm) Syringe) 50 ml IV PRN PRN PRN Reason: Hypoglycemia Enoxaparin Sodium (Lovenox) 40 mg SUB-Q QDAY COUNT INCLUDES THE [facility] Furosemide (Lasix) 20 mg IV BID@0600,1800 COUNT INCLUDES THE [facility] Losartan Potassium (Cozaar) 50 mg PO BID COUNT INCLUDES THE [facility] Metoprolol Tartrate (Lopressor) 50 mg PO BID COUNT INCLUDES THE [facility] Morphine Sulfate (Morphine) 2 mg IV Q4H PRN PRN Reason: Pain, Moderate (4-6) Naloxone HCl (Narcan 0.4 Mg/1 Ml) 0.1 mg IV Q2MIN PRN PRN Reason: Res Rate </= 8 or 02 SAT < 92% Nitroglycerin (Nitrostat) 0.4 mg SL .Q5MIN PRN PRN Reason: Chest Pain Ondansetron HCl (Zofran) 4 mg IV Q8H PRN PRN Reason: Nausea And Vomiting Oxycodone/Acetaminophen (Percocet 5/325) 1 tab PO Q6H PRN PRN Reason: Pain, Moderate (4-6) Pantoprazole Sodium (Protonix) 40 mg PO QDAY COUNT INCLUDES THE [facility] Potassium Chloride (K-Dur) 10 meq PO BID NASRIN Sertraline HCl (Zoloft) 50 mg PO HS COUNT INCLUDES THE [facility] Sodium Chloride (Sodium Chloride Flush Syringe 10 Ml) 10 ml IV BID COUNT INCLUDES THE [facility] Sodium Chloride (Sodium Chloride Flush Syringe 10 Ml) 10 ml IV PRN PRN PRN Reason: LINE FLUSH Zolpidem Tartrate (Ambien) 5 mg PO QHS PRN PRN Reason: Insomnia Physical Examination Vital Signs Temp Pulse Resp BP Pulse Ox 97.4 F L 82 18 184/96 92 04/30/19 04:04 04/30/19 04:04 04/30/19 04:04 04/30/19 04:04 04/30/19 04:04 General appearance: no acute distress HEENT: Positive: PERRL Neck: Positive: trachea midline Cardiac: Positive: Reg Rate and Rhythm Lungs: Positive: Decreased Breath Sounds Neuro: Positive: Grossly Intact Extremities: Absent: edema Results 04/30/19 06:28 04/30/19 06:28 Cardiac Enzymes 04/30/19 Range/Units 06:28 AST 34 (5-40) units/L CBC 04/30/19 Range/Units 06:28 WBC 5.8 (4.5-11.0) K/mm3 RBC 4.43 (3.65-5.03) M/mm3 Hgb 10.6 (10.1-14.3) gm/dl Hct 33.6 (30.3-42.9) % Plt Count 216 (140-440) K/mm3 Lymph # 1.7 (1.2-5.4) K/mm3 Duval # 0.5 (0.0-0.8) K/mm3 Eos # 0.2 (0.0-0.4) K/mm3 Baso # 0.0 (0.0-0.1) K/mm3 Comprehensive Metabolic Panel 04/30/19 Range/Units 06:28 Sodium 141 (137-145) mmol/L Potassium 4.4 (3.6-5.0) mmol/L Chloride 107.6 H (98-107) mmol/L Carbon Dioxide 24 (22-30) mmol/L BUN 14 (7-17) mg/dL Creatinine 1.3 H (0.7-1.2) mg/dL Glucose 192 H (65-100) mg/dL Calcium 9.0 (8.4-10.2) mg/dL AST 34 (5-40) units/L ALT 32 (7-56) units/L Alkaline Phosphatase 89 (35-129) units/L Total Protein 7.1 (6.3-8.2) g/dL Albumin 3.6 L (3.9-5) g/dL Assessment and Plan Acute heart failure Hypertension Hx of SC/CAD with 3v CABG in 2016 Normal LVEF 55% by echo 02/2018. Continue medical therapy including IV diuretics. Echocardiogram for reassessment of LVEF.
[2019-04-30] MEDS: LOVENOX SUB-Q SCH (11:51)
[2019-04-30] MEDS: K-DUR PO SCH ×2 (11:52→21:23)
[2019-04-30] MEDS: LOPRESSOR PO SCH ×2 (11:53→21:23)
[2019-04-30] MEDS: SODIUM CHLORIDE FLUSH SYRINGE 10 ML IV SCH ×2 (11:53→21:24)
[2019-04-30] MEDS: PROTONIX PO SCH (11:54)
[2019-04-30] MEDS: PLAVIX PO SCH (11:54)
[2019-04-30] MEDS: HumaLOG SUB-Q SCH ×3 (13:41→21:23)
--- NOTE | 2019-04-30 18:14 | History and Physical Report ---
History of Present Illness Date of examination: 04/30/19 Date of admission: 04/30/19 07:28 Chief complaint: Shortness of breath History of present illness: Patient is a 63-year-old female with a past history of congestive heart failure, coronary artery disease, hyperlipidemia, hypertension presents with a three-day history of shortness of breath and fatigue. Patient states symptoms initially began as fatigue which she was at work and progressed over the next 2 days. Patient stated that last night she went to sleep and woke up with shortness of breath and pressure on her chest. Patient states it was mostly shortness of breath. Patient states she's had minimal pain consistent with what she was having since her CABG. But what was new was shortness of breath and shortness of breath with minimal exertion and fatigue. Patient also relates dyspnea mouth diaphoresis and dyspnea on murmur or exertion. Chest x-ray upon workup showed bilateral pulmonary opacities. Patient stated prior to this she also had minimally productive cough no fever or chills no nausea vomiting. At present patient is chest pain-free and states breathing is improved as well. She'll able to talk in full sentences and lie flat without much difficulty. Past History Past Medical History: arrhythmia, anemia, CAD, heart failure, hypertension, hyperlipidemia. denies: atrial fib, arthritis, cancer, COPD, diabetes, dialysis, DVT, ESRD, GERD, hepatitis, HIV/AIDS, hyperthyroidism, hypothyroidism, liver disease, migraines, PVD, pulmonary embolism, seizures, stroke, sarcoidosis Past Surgical History: CABG, , Other (colon cancer) Social history: , lives with family, full code. denies: smoking, alcohol abuse, prescription drug abuse, IV drug use, AND/DNR-allow natural Family history: hypertension Medications and Allergies Allergies Allergy/AdvReac Type Severity Reaction Status Date / Time lisinopril AdvReac COUGH Verified 01/08/18 13:53 Home Medications Medication Instructions Recorded Confirmed Last Taken Type Aspirin [Aspirin BABY CHEW TAB] 81 mg PO QDAY 11/03/16 04/30/19 01/03/18 History AtorvaSTATin [Lipitor] 20 mg PO QHS 11/03/16 04/30/19 01/06/18 History Metoprolol [Lopressor TAB] 50 mg PO BID 11/03/16 04/30/19 01/08/18 09:30 History Pantoprazole [Protonix TAB] 40 mg PO QDAY 11/03/16 04/30/19 01/06/18 History Sertraline [Zoloft] 50 mg PO HS 11/03/16 04/30/19 01/06/18 History Clopidogrel Bisulfate [Clopidogrel] 75 mg PO DAILY 08/04/17 04/30/19 01/03/18 History Liraglutide [Victoza 2-Hunter] 1.2 mg SQ QHS 01/08/18 04/30/19 01/06/18 History Losartan [Cozaar] 50 mg PO BID 01/08/18 04/30/19 01/08/18 09:30 History Metformin HCl [Metformin HCl ER] 500 mg PO QDAY 01/08/18 04/30/19 01/06/18 History Active Meds: Active Medications Acetaminophen (Tylenol) 650 mg PO Q4H PRN PRN Reason: Pain MILD(1-3)/Fever >100.5/[place]IX[place] Al Hydrox/Mg Hydrox/Simethicone (Alum-Mag Hydrox-Simeth [phone]/5ml) 30 ml PO Q4H PRN PRN Reason: Indigestion Aspirin (Baby Aspirin) 81 mg PO QDAY [facility] Atorvastatin Calcium (Lipitor) 20 mg PO QHS [facility] Clopidogrel Bisulfate (Plavix) 75 mg PO QDAY [facility] Last Admin: 04/30/19 11:54 Dose: 75 mg Documented by: Dextrose (D50w (25gm) Syringe) 50 ml IV PRN PRN PRN Reason: Hypoglycemia Enoxaparin Sodium (Lovenox) 40 mg SUB-Q QDAY [facility] Last Admin: 04/30/19 11:51 Dose: 40 mg Documented by: Furosemide (Lasix) 20 mg IV BID@0600,1800 [facility] Insulin Human Lispro (Humalog) 0 unit SUB-Q Q6HR [facility]; Protocol Last Admin: 04/30/19 17:48 Dose: Not Given Documented by: Losartan Potassium (Cozaar) 50 mg PO BID [facility] Last Admin: 04/30/19 11:54 Dose: 50 mg Documented by: Metoprolol Tartrate (Lopressor) 50 mg PO BID [facility] Last Admin: 04/30/19 11:53 Dose: 50 mg Documented by: Morphine Sulfate (Morphine) 2 mg IV Q4H PRN PRN Reason: Pain, Moderate (4-6) Naloxone HCl (Narcan 0.4 Mg/1 Ml) 0.1 mg IV Q2MIN PRN PRN Reason: Res Rate </= 8 or 02 SAT < 92% Nitroglycerin (Nitrostat) 0.4 mg SL .Q5MIN PRN PRN Reason: Chest Pain Ondansetron HCl (Zofran) 4 mg IV Q8H PRN PRN Reason: Nausea And Vomiting Oxycodone/Acetaminophen (Percocet 5/325) 1 tab PO Q6H PRN PRN Reason: Pain, Moderate (4-6) Pantoprazole Sodium (Protonix) 40 mg PO QDAY [facility] Last Admin: 04/30/19 11:54 Dose: 40 mg Documented by: Potassium Chloride (K-Dur) 10 meq PO BID [facility] Last Admin: 04/30/19 11:52 Dose: 10 meq Documented by: Sertraline HCl (Zoloft) 50 mg PO [facility] Sodium Chloride (Sodium Chloride Flush Syringe 10 Ml) 10 ml IV BID [facility] Last Admin: 04/30/19 11:53 Dose: 10 ml Documented by: Sodium Chloride (Sodium Chloride Flush Syringe 10 Ml) 10 ml IV PRN PRN PRN Reason: LINE FLUSH Zolpidem Tartrate (Ambien) 5 mg PO QHS PRN PRN Reason: Insomnia Review of Systems Constitutional: fatigue, weakness, malaise, no weight loss, no weight gain, no fever, no chills, no sweats, no night sweats, no anorexia, no lethargy, no chronic headaches, no poor appetite, no daytime sleepiness, no chronic pain Ears, nose, mouth and throat: sinus pressure, no ear pain, no ear discharge, no nasal congestion, no nasal discharge, no sinus pain, no bleeding gums, no mouth pain, no sore throat, no swelling in throat, no voice changes, no post-nasal drip, no vertigo, no pain front of neck, no neck lump Breasts: deferred Cardiovascular: orthopnea, edema, lightheadedness, shortness of breath, dyspnea on exertion, paroxysmal nocturnal dyspnea, decreased exercise tolerance, no chest pain, no palpitations, no rapid/irregular heart beat, no syncope, no claudication, no phlebitis Respiratory: cough, shortness of breath, dyspnea on exertion, congestion, wheezing, no cough with sputum, no hemoptysis, no pleurisy, no pain, no pain on inspiration, no snoring, no sleep apnea, no respiratory infections, no other Gastrointestinal: no vomiting, no constipation, no hematemesis, no coffee ground emesis, no melena, no hematochezia, no early satiety, no heartburn, no jaundice, no dyspepsia/bloating Genitourinary Female: no pelvic pain, no menorrhagia, no urinary frequency, no stress incontinence, no mixed incontinence, no hematuria Musculoskeletal: no neck pain, no shooting arm pain, no shooting leg pain, no myalgias, no atrophy, no limitation of motion, no frequent falls, no loss of height Integumentary: no rash, no redness, no wounds, no boils, no bullae, no color changes, no hirsutism Neurological: no transient paralysis, no parathesias, no tingling, no seizures, no ataxia, no lack of coordination, no change in speech, no change in mentation, no confusion, no changes in smell/taste, no gait dysfunction, no loss of vision, no hearing difficulties Psychiatric: no memory loss, no change in sleep habits Endocrine: weight change, no cold intolerance, no polyphagia, no excessive thirst, no increase in ring/shoe/hat size, no proptosis, no thyroid mass, no palpatations, no low blood sugars, no fatigue Hematologic/Lymphatic: no easy bruising, no lymphedema, no thrombophilia Allergic/Immunologic: no urticaria, no allergic rhinitis, no anaphylaxis, no seasonal allergies Exam - Constitutional Vitals: Temp Pulse Resp BP Pulse Ox 98.5 F 69 18 139/68 98 04/30/19 16:36 04/30/19 16:36 04/30/19 16:36 04/30/19 16:36 04/30/19 16:36 General appearance: Present: no acute distress, well-nourished - EENT Eyes: Present: PERRL ENT: hearing intact, clear oral mucosa - Neck Neck: Present: supple, normal ROM - Respiratory Respiratory effort: normal Respiratory: bilateral: rhonchi (bilateral bases), wheezing - Cardiovascular Heart Sounds: Present: S1 & S2, systolic murmur. Absent: rub, click - Extremities Extremities: pulses symmetrical, No edema Peripheral Pulses: within normal limits - Abdominal General gastrointestinal: Present: soft, non-tender, non-distended, normal bowel sounds Female genitourinary: Present: deferred - Rectal Rectal Exam: deferred - Integumentary Integumentary: Present: clear, warm, dry. Absent: jaundice, rash, clammy, pale, normal turgor - Musculoskeletal Musculoskeletal: gait normal, strength equal bilaterally - Psychiatric Psychiatric: appropriate mood/affect, intact judgment & insight - Neurologic Neurologic: CNII-XII intact, moves all extremities Results - Labs CBC & Chem 7: 04/30/19 06:28 04/30/19 06:28 Labs: Laboratory Last Values WBC 5.8 K/mm3 (4.5-11.0) 04/30/19 06:28 RBC 4.43 M/mm3 (3.65-5.03) 04/30/19 06:28 Hgb 10.6 gm/dl (10.1-14.3) 04/30/19 06:28 Hct 33.6 % (30.3-42.9) 04/30/19 06:28 MCV 76 fl (79-97) L 04/30/19 06:28 MCH 24 pg (28-32) L 04/30/19 06:28 MCHC 32 % (30-34) 04/30/19 06:28 RDW 16.3 % (13.2-15.2) H 04/30/19 06:28 Plt Count 216 K/mm3 (140-440) 04/30/19 06:28 Lymph % (Auto) 29.1 % (13.4-35.0) 04/30/19 06:28 [place] % (Auto) 8.7 % (0.0-7.3) H 04/30/19 06:28 Eos % (Auto) 2.6 % (0.0-4.3) 04/30/19 06:28 Baso % (Auto) 0.8 % (0.0-1.8) 04/30/19 06:28 Lymph # 1.7 K/mm3 (1.2-5.4) 04/30/19 06:28 [place] # 0.5 K/mm3 (0.0-0.8) 04/30/19 06:28 Eos # 0.2 K/mm3 (0.0-0.4) 04/30/19 06:28 Baso # 0.0 K/mm3 (0.0-0.1) 04/30/19 06:28 Seg Neutrophils % 58.8 % (40.0-70.0) 04/30/19 06:28 Seg Neutrophils # 3.4 K/mm3 (1.8-7.7) 04/30/19 06:28 Sodium 141 mmol/L (137-145) 04/30/19 06:28 Potassium 4.4 mmol/L (3.6-5.0) 04/30/19 06:28 Chloride 107.6 mmol/L (98-107) H 04/30/19 06:28 Carbon Dioxide 24 mmol/L (22-30) 04/30/19 06:28 14 mmol/L 04/30/19 06:28 BUN 14 mg/dL (7-17) 04/30/19 06:28 1.3 mg/dL (0.7-1.2) H 04/30/19 06:28 Estimated GFR 50 ml/min 04/30/19 06:28 11 % 04/30/19 06:28 Glucose 192 mg/dL (65-100) H 04/30/19 06:28 POC Glucose 212 (70-105) H 04/30/19 12:17 Calcium 9.0 mg/dL (8.4-10.2) 04/30/19 06:28 0.30 mg/dL (0.1-1.2) 04/30/19 06:28 AST 34 units/L (5-40) 04/30/19 06:28 ALT 32 units/L (7-56) 04/30/19 06:28 89 units/L (35-129) 04/30/19 06:28 < 0.010 ng/mL (0.00-0.029) 04/30/19 13:52 NT-Pro-B Natriuret Pep 3031 pg/mL (0-900) H 04/30/19 06:28 7.1 g/dL (6.3-8.2) 04/30/19 06:28 3.6 g/dL (3.9-5) L 04/30/19 06:28 1.0 % 04/30/19 06:28 Straw (Yellow) 04/30/19 08:39 Clear (Clear) 04/30/19 08:39 6.0 (5.0-7.0) 04/30/19 08:39 Ur Specific [place] 1.009 (1.003-1.030) 04/30/19 08:39 <15 mg/dl mg/dL (Negative) 04/30/19 08:39 Neg mg/dL (Negative) 04/30/19 08:39 Neg mg/dL (Negative) 04/30/19 08:39 Neg (Negative) 04/30/19 08:39 Neg (Negative) 04/30/19 08:39 Neg (Negative) 04/30/19 08:39 < 2.0 mg/dL (<2.0) 04/30/19 08:39 Ur Leukocyte Esterase Neg (Negative) 04/30/19 08:39 < 1.0 /HPF (0.0-6.0) 04/30/19 08:39 1.0 /HPF (0.0-6.0) 04/30/19 08:39 - Imaging and Cardiology EKG: image reviewed (echo) Chest x-ray: report reviewed, image reviewed Assessment and Plan Assessment and plan: 63-year-old female with risk factors of hypertension congestive heart failure coronary artery disease hyperlipidemia presents with shortness of breath exam with acute respiratory failure secondary to CHF versus pneumonia. Advance Directives: Yes VTE prophylaxis?: Chemical Plan of care discussed with patient/family: Yes - Patient Problems (1) Bronchitis Current Visit: Yes Status: Acute Plan to address problem: At present patient may have an acute underlying bronchitis. Clinically appears to be more CHF however given chest x-ray findings of opacities, minimally productive cough and anterior congestion. Will add antibiotics azithromycin and nebulizers as well. Does not appear to require steroids at this time. (2) CHF exacerbation Current Visit: Yes Status: Acute Plan to address problem: Also high on differential is CHF exacerbation. Patient is maintained ejection fraction of approximately 45-50%. At present we'll continue diuretics. We'll add losartan as well as beta jose juan. Patient recent echocardiogram 45%. Currently hemodynamically stable. Suboptimally controlled. 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 Cardiology following. (3) Chest pain Current Visit: Yes Status: Acute Plan to address problem: Rest pain appears atypical. Suspect #1 CHF #2 acute bronchitis potential underlying coronary artery disease patient is CABG. Treat potential underlying etiologies as explained above. (4) CAD (coronary artery disease) Current Visit: No Status: Acute Plan to address problem: Patient CABG for triple-vessel disease. Wall appears to be CHF questionable underlying etiology of ischemia. Cardiology following we'll await any further recommendations. Patient is currently chest pain-free will add nitrates when necessary for now. In control and supportive care. Cardiac isoenzymes are unremarkable. EKG no new changes as well. (5) HTN (hypertension), malignant Current Visit: Yes Status: Acute Plan to address problem: We'll start patient on losartan 50 mg daily. Will treat with IV hydralazine when necessary if needed. Restart beta jose juan.
[2019-04-30] MEDS: LASIX IV SCH (18:16)
[2019-04-30] MEDS: ZITHROMAX 500 MG in NACL 0.9% 250ML 250 ML IV SCH (19:49)
[2019-04-30] MEDS: PROVENTIL IH SCH (20:38)
[2019-04-30] MEDS: ZOLOFT PO SCH (21:23)
[2019-04-30] MEDS ORDERED: AMBIEN PO PRN (22:00)
[2019-05-01] MEDS: LASIX IV SCH ×2 (05:37→18:01)
[2019-05-01 06:03] LABS: Basophils % (Auto) 0.7 % (0.0-1.8); Eosinophils # (Auto) 0.2 K/mm3 (0.0-0.4); Eosinophils % (Auto) 3.9 % (0.0-4.3); Hematocrit 33.9 % (30.3-42.9); Hemoglobin 10.7 gm/dl (10.1-14.3); Lymphocytes # (Auto) 1.4 K/mm3 (1.2-5.4); Lymphocytes % (Auto) 34.5 % (13.4-35.0); Mean Corpuscular HGB Conc 32 % (30-34); Mean Corpuscular Volume 75 fl (79-97); Monocytes # (Auto) 0.5 K/mm3 (0.0-0.8); Monocytes % (Auto) 11.9 % (0.0-7.3); Platelet Count 200 K/mm3 (140-440); Red Cell Distribution Width 16.4 % (13.2-15.2)
[2019-05-01 06:24] LABS: Calcium 9.1 mg/dL (8.4-10.2)
[2019-05-01] MEDS: HumaLOG SUB-Q SCH ×4 (08:00→21:47)
[2019-05-01] MEDS: PROVENTIL IH SCH ×3 (08:16→20:09)
[2019-05-01] MEDS: LOPRESSOR PO SCH ×2 (09:43→23:14)
[2019-05-01] MEDS: PLAVIX PO SCH (09:43)
[2019-05-01] MEDS: BABY ASPIRIN PO SCH (09:44)
[2019-05-01] MEDS: COZAAR PO SCH (09:44)
[2019-05-01] MEDS: LOVENOX SUB-Q SCH (09:44)
[2019-05-01] MEDS: PROTONIX PO SCH (09:45)
[2019-05-01] MEDS: ZITHROMAX 500 MG in NACL 0.9% 250ML 250 ML IV SCH (10:49)
[2019-05-01] MEDS: K-DUR PO SCH ×2 (10:49→21:47)
[2019-05-01] MEDS: SODIUM CHLORIDE FLUSH SYRINGE 10 ML IV SCH (10:50)
[2019-05-01] MEDS: PERCOCET 5/325 PO PRN (11:38)
--- NOTE | 2019-05-01 12:42 | Progress Note ---
Assessment and Plan Acute heart failure Hypertension Hx of MS/CAD with 3v CABG in 2017 Normal LVEF 55% by echo 02/2018. Continue medical therapy including IV diuretics. Echocardiogram for reassessment of LVEF. Subjective Date of service: 05/01/19 Interval history: Patient reports her breathing is better. Objective Vital Signs Temp Pulse Pulse Pulse Resp Resp Resp 05/01/19 09:44 76 05/01/19 09:43 76 05/01/19 07:41 05/01/19 04:24 98.3 F 66 18 04/30/19 23:35 98.1 F 66 18 04/30/19 21:23 74 04/30/19 20:58 74 18 04/30/19 20:57 18 04/30/19 20:54 95 H 18 04/30/19 20:48 18 04/30/19 20:44 04/30/19 19:48 18 04/30/19 19:47 98.2 F 74 18 04/30/19 19:15 78 04/30/19 16:36 98.5 F 69 18 BP Pulse Ox 05/01/19 09:44 154/70 05/01/19 09:43 154/70 05/01/19 07:41 97 05/01/19 04:24 164/71 99 04/30/19 23:35 139/69 95 04/30/19 21:23 156/74 04/30/19 20:58 98 04/30/19 20:57 04/30/19 20:54 04/30/19 20:48 04/30/19 20:44 98 04/30/19 19:48 04/30/19 19:47 156/74 98 04/30/19 19:15 04/30/19 16:36 139/68 98 - Physical Examination General: No Apparent Distress HEENT: Positive: PERRL Neck: Positive: trachea midline Cardiac: Positive: Reg Rate and Rhythm Lungs: Positive: Decreased Breath Sounds Neuro: Positive: Grossly Intact Extremities: Absent: edema - Labs and Meds CBC 05/01/19 Range/Units 05:30 WBC 4.1 L (4.5-11.0) K/mm3 RBC 4.50 (3.65-5.03) M/mm3 Hgb 10.7 (10.1-14.3) gm/dl Hct 33.9 (30.3-42.9) % Plt Count 200 (140-440) K/mm3 Lymph # 1.4 (1.2-5.4) K/mm3 [place] # 0.5 (0.0-0.8) K/mm3 Eos # 0.2 (0.0-0.4) K/mm3 Baso # 0.0 (0.0-0.1) K/mm3 Comprehensive Metabolic Panel 05/01/19 Range/Units 05:30 Sodium 142 (137-145) mmol/L Potassium 4.0 (3.6-5.0) mmol/L Chloride 102.8 (98-107) mmol/L Carbon Dioxide 25 (22-30) mmol/L BUN 21 H (7-17) mg/dL Creatinine 1.2 (0.7-1.2) mg/dL Glucose 172 H (65-100) mg/dL Calcium 9.1 (8.4-10.2) mg/dL
--- NOTE | 2019-05-01 21:05 | Progress Note ---
Assessment and Plan Assessment and plan: 63-year-old female with risk factors of hypertension congestive heart failure coronary artery disease hyperlipidemia presents with shortness of breath exam with acute respiratory failure secondary to CHF versus pneumonia. - Patient Problems (1) Bronchitis Current Visit: Yes Status: Acute Plan to address problem: I feel patient still may have underlying bronchitis. With minimally productive cough. We'll continue antibiotics and nebulizers. It did make her feel better. We will discharge will continue by mouth antibiotics as well. No fever no white count. (2) CHF exacerbation Current Visit: Yes Status: Acute Plan to address problem: . Patient is maintained ejection fraction of approximately 45-50%. At present we'll continue diuretics. We'll add losartan as well as beta jose juan. Patient recent echocardiogram 45%. Currently hemodynamically stable. Suboptimally controlled. 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 Cardiology following. Patient maintains ejection fraction of 50%. Clinically has improved. We'll follow-up chest x-ray. Patient improved with medical therapy diuretics and Artane beta jose juan. (3) Chest pain Current Visit: Yes Status: Resolved Plan to address problem: Rest pain appears atypical. Suspect #1 CHF #2 acute bronchitis potential under lying coronary artery disease patient is CABG. Treat potential underlying etiologies as explained above. (4) CAD (coronary artery disease) Current Visit: No Status: Acute Plan to address problem: Patient with show poor vessel disease. CABG in the past. Cardiology following aggressive antilipid therapy antiplatelet therapy aspirin Plavix. Currently he began with stable chest pain-free. 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 (5) HTN (hypertension), malignant Current Visit: Yes Status: Acute Plan to address problem: She currently has optimal control of blood pressure this point on beta jose juan and ARB (6) Combined hyperlipidemia Current Visit: Yes Status: Acute Plan to address problem: Continue statin follow-up LDL at goal of less than 70. History Interval history: Present patient feels better today. Still short of breath with minimal exertion. Clinically has improved. Patient started on nebulizers yesterday stated they didn't make her feel better. Less cough. We'll follow-up x-ray in a.m. Hospitalist Physical - Constitutional Vitals: Temp Pulse Resp BP Pulse Ox 98.4 F 97 H 18 118/69 92 05/01/19 20:49 05/01/19 20:47 05/01/19 20:47 05/01/19 20:47 05/01/19 20:47 General appearance: Present: no acute distress, well-nourished - EENT Eyes: Present: PERRL, EOM intact ENT: hearing intact, clear oral mucosa, dentition normal - Neck Neck: Present: supple, normal ROM - Respiratory Respiratory: bilateral: diminished, rhonchi - Cardiovascular Rhythm: regular - Extremities Extremities: no ischemia, pulses intact, pulses symmetrical, No edema, normal temperature, normal color Extremity abnormal: edema Peripheral Pulses: within normal limits - Abdominal General gastrointestinal: soft, non-tender, non-distended - Integumentary Integumentary: Present: clear, warm, dry - Psychiatric Psychiatric: appropriate mood/affect, intact judgment & insight, memory intact - Neurologic Neurologic: moves all extremities Results - Labs CBC & Chem 7: 05/01/19 05:30 05/01/19 05:30 Labs: Laboratory Last Values WBC 4.1 K/mm3 (4.5-11.0) L 05/01/19 05:30 RBC 4.50 M/mm3 (3.65-5.03) 05/01/19 05:30 Hgb 10.7 gm/dl (10.1-14.3) 05/01/19 05:30 Hct 33.9 % (30.3-42.9) 05/01/19 05:30 MCV 75 fl (79-97) L 05/01/19 05:30 MCH 24 pg (28-32) L 05/01/19 05:30 MCHC 32 % (30-34) 05/01/19 05:30 RDW 16.4 % (13.2-15.2) H 05/01/19 05:30 Plt Count 200 K/mm3 (140-440) 05/01/19 05:30 Lymph % (Auto) 34.5 % (13.4-35.0) 05/01/19 05:30 [place] % (Auto) 11.9 % (0.0-7.3) H 05/01/19 05:30 Eos % (Auto) 3.9 % (0.0-4.3) 05/01/19 05:30 Baso % (Auto) 0.7 % (0.0-1.8) 05/01/19 05:30 Lymph # 1.4 K/mm3 (1.2-5.4) 05/01/19 05:30 [place] # 0.5 K/mm3 (0.0-0.8) 05/01/19 05:30 Eos # 0.2 K/mm3 (0.0-0.4) 05/01/19 05:30 Baso # 0.0 K/mm3 (0.0-0.1) 05/01/19 05:30 Seg Neutrophils % 49.0 % (40.0-70.0) 05/01/19 05:30 Seg Neutrophils # 2.0 K/mm3 (1.8-7.7) 05/01/19 05:30 Sodium 142 mmol/L (137-145) 05/01/19 05:30 Potassium 4.0 mmol/L (3.6-5.0) 05/01/19 05:30 Chloride 102.8 mmol/L (98-107) 05/01/19 05:30 Carbon Dioxide 25 mmol/L (22-30) 05/01/19 05:30 18 mmol/L 05/01/19 05:30 BUN 21 mg/dL (7-17) H 05/01/19 05:30 1.2 mg/dL (0.7-1.2) 05/01/19 05:30 Estimated GFR 55 ml/min 05/01/19 05:30 18 % 05/01/19 05:30 Glucose 172 mg/dL (65-100) H 05/01/19 05:30 POC Glucose 244 (70-105) H 05/01/19 16:37 Calcium 9.1 mg/dL (8.4-10.2) 05/01/19 05:30 0.30 mg/dL (0.1-1.2) 04/30/19 06:28 AST 34 units/L (5-40) 04/30/19 06:28 ALT 32 units/L (7-56) 04/30/19 06:28 89 units/L (35-129) 04/30/19 06:28 < 0.010 ng/mL (0.00-0.029) 04/30/19 13:52 NT-Pro-B Natriuret Pep 3031 pg/mL (0-900) H 04/30/19 06:28 7.1 g/dL (6.3-8.2) 04/30/19 06:28 3.6 g/dL (3.9-5) L 04/30/19 06:28 1.0 % 04/30/19 06:28 Straw (Yellow) 04/30/19 08:39 Clear (Clear) 04/30/19 08:39 6.0 (5.0-7.0) 04/30/19 08:39 Ur Specific [place] 1.009 (1.003-1.030) 04/30/19 08:39 <15 mg/dl mg/dL (Negative) 04/30/19 08:39 Neg mg/dL (Negative) 04/30/19 08:39 Neg mg/dL (Negative) 04/30/19 08:39 Neg (Negative) 04/30/19 08:39 Neg (Negative) 04/30/19 08:39 Neg (Negative) 04/30/19 08:39 < 2.0 mg/dL (<2.0) 04/30/19 08:39 Ur Leukocyte Esterase Neg (Negative) 04/30/19 08:39 < 1.0 /HPF (0.0-6.0) 04/30/19 08:39 1.0 /HPF (0.0-6.0) 04/30/19 08:39 - Imaging and Cardiology EKG: image reviewed Chest x-ray: image reviewed US - abdomen: other (echocardiogram ejection fraction 55%) Active Medications - Current Medications Current Medications: Generic Name Dose Route Start Last Admin Trade Name Freq PRN Reason Stop Dose Admin Acetaminophen 650 mg 04/30/19 09:32 04/30/19 19:48 Tylenol PO 650 mg Q4H PRN Administration Pain MILD(1-3)/Fever >100.5/CALIXTO Al Hydrox/Mg Hydrox/Simethicone 30 ml 04/30/19 10:00 Alum-Mag Hydrox-Simeth [phone]/5ml PO Q4H PRN Indigestion Albuterol 2.5 mg 04/30/19 20:00 05/01/19 20:09 Proventil IH 2.5 mg TIDRT NASRIN Administration Aspirin 81 mg 05/01/19 10:00 05/01/19 09:44 Baby Aspirin PO 81 mg QDAY NASRIN Administration Atorvastatin Calcium 20 mg 04/30/19 22:00 04/30/19 21:23 Lipitor PO 20 mg QHS NASRIN Administration Clopidogrel Bisulfate 75 mg 04/30/19 11:00 05/01/19 09:43 Plavix PO 75 mg QDAY NASRIN Administration Dextrose 50 ml 04/30/19 09:32 D50w (25gm) Syringe IV PRN PRN Hypoglycemia Enoxaparin Sodium 40 mg 04/30/19 12:00 05/01/19 09:44 Lovenox SUB-Q 40 mg QDAY NASRIN Administration Furosemide 20 mg 04/30/19 18:00 05/01/19 18:01 Lasix IV 20 mg BID@0600,1800 NASRIN Administration Azithromycin 500 mg/ Sodium 250 mls @ 250 mls/hr 04/30/19 19:00 05/01/19 10:49 Chloride IV 05/04/19 23:59 250 mls/hr Q24HR NASRIN Administration Protocol Insulin Human Lispro 0 unit 04/30/19 22:00 05/01/19 18:01 Humalog SUB-Q 3 unit ACHS NASRIN Administration Protocol Losartan Potassium 50 mg 05/01/19 10:00 05/01/19 09:44 Cozaar PO 50 mg QDAY NASRIN Administration Metoprolol Tartrate 50 mg 04/30/19 11:00 05/01/19 09:43 Lopressor PO 50 mg BID NASRIN Administration Morphine Sulfate 2 mg 04/30/19 09:32 Morphine IV Q4H PRN Pain, Moderate (4-6) Naloxone HCl 0.1 mg 04/30/19 09:32 Narcan 0.4 Mg/1 Ml IV Q2MIN PRN Res Rate </= 8 or 02 SAT < 92% Nitroglycerin 0.4 mg 04/30/19 09:32 Nitrostat SL .Q5MIN PRN Chest Pain Ondansetron HCl 4 mg 04/30/19 09:32 Zofran IV Q8H PRN Nausea And Vomiting Oxycodone/Acetaminophen 1 tab 04/30/19 11:00 05/01/19 11:38 Percocet 5/325 PO 1 tab Q6H PRN Administration Pain, Moderate (4-6) Pantoprazole Sodium 40 mg 04/30/19 11:00 05/01/19 09:45 Protonix PO 40 mg QDAY NASRIN Administration Potassium Chloride 10 meq 04/30/19 11:00 05/01/19 10:49 K-Dur PO 10 meq BID NASRIN Administration Sertraline HCl 50 mg 04/30/19 22:00 04/30/19 21:23 Zoloft PO 50 mg HS NASRIN Administration Sodium Chloride 10 ml 04/30/19 10:00 05/01/19 10:50 Sodium Chloride Flush Syringe 10 Ml IV 10 ml BID NASRIN Administration Sodium Chloride 10 ml 04/30/19 09:32 Sodium Chloride Flush Syringe 10 Ml IV PRN PRN LINE FLUSH Zolpidem Tartrate 5 mg 04/30/19 22:00 Ambien PO QHS PRN Insomnia
[2019-05-01] MEDS: ZOLOFT PO SCH (21:47)
--- NOTE | 2019-05-01 22:58 | XRay Report ---
CHEST 1 VIEW INDICATION / CLINICAL INFORMATION: CHF. COMPARISON: 04/30/19 FINDINGS: SUPPORT DEVICES: None. HEART / MEDIASTINUM: Upper normal size and stable. Median sternotomy wires are unchanged. LUNGS / PLEURA: Significant interval improvement in interstitial pulmonary edema. No acute airspace d isease. No pneumothorax. ADDITIONAL FINDINGS: No significant additional findings. IMPRESSION: 1. Significant improvement in interstitial pulmonary edema. Signer Name: Ena Ward MD Signed: 05/01/2019 10:54 PM Workstation Name: [id number]
[2019-05-02] MEDS: LASIX IV SCH ×2 (05:19→18:17)
[2019-05-02] MEDS: SODIUM CHLORIDE FLUSH SYRINGE 10 ML IV SCH ×3 (05:20→21:53)
[2019-05-02 07:14] LABS: Calcium 9.2 mg/dL (8.4-10.2)
[2019-05-02] MEDS: PROVENTIL IH SCH ×3 (08:03→20:32)
[2019-05-02] MEDS: HumaLOG SUB-Q SCH ×4 (08:55→21:53)
--- NOTE | 2019-05-02 10:45 | Progress Note ---
Assessment and Plan Acute heart failure Hypertension Hx of [place]/CAD with 3v CABG in 2017 Normal LVEF 55% by echo 02/2018. A repeat echocardiogram this admission reports a normal LVEF 50-55%. Subjective Date of service: 05/02/19 Interval history: Patient reports she is feeling better. She denies shortness of breath. Objective Vital Signs Temp Pulse Pulse Resp Resp BP Pulse Ox 05/02/19 09:24 82 05/02/19 08:03 82 17 05/02/19 03:58 98.4 F 05/02/19 03:56 84 16 140/78 98 05/02/19 00:00 81 05/01/19 23:44 98.3 F 05/01/19 23:43 84 18 122/60 97 05/01/19 22:00 98 05/01/19 20:49 98.4 F 05/01/19 20:47 97 H 18 118/69 92 05/01/19 20:09 74 17 05/01/19 17:12 73 138/75 96 05/01/19 13:28 74 16 05/01/19 12:57 64 162/68 98 - Physical Examination General: No Apparent Distress HEENT: Positive: PERRL Neck: Positive: trachea midline Cardiac: Positive: Reg Rate and Rhythm Lungs: Positive: Normal Breath Sounds Neuro: Positive: Grossly Intact Extremities: Absent: edema - Labs and Meds Comprehensive Metabolic Panel 05/02/19 Range/Units 06:45 Sodium 140 (137-145) mmol/L Potassium 4.5 (3.6-5.0) mmol/L Chloride 100.1 (98-107) mmol/L Carbon Dioxide 28 (22-30) mmol/L BUN 23 H (7-17) mg/dL Creatinine 1.2 (0.7-1.2) mg/dL Glucose 218 H (65-100) mg/dL Calcium 9.2 (8.4-10.2) mg/dL
[2019-05-02] MEDS: PLAVIX PO SCH (10:53)
[2019-05-02] MEDS: LOVENOX SUB-Q SCH (10:53)
[2019-05-02] MEDS: ZITHROMAX 500 MG in NACL 0.9% 250ML 250 ML IV SCH (10:53)
[2019-05-02] MEDS: BABY ASPIRIN PO SCH (10:54)
[2019-05-02] MEDS: LOPRESSOR PO SCH ×2 (10:54→21:52)
[2019-05-02] MEDS: PROTONIX PO SCH (10:54)
[2019-05-02] MEDS: K-DUR PO SCH ×2 (10:54→21:52)
[2019-05-02] MEDS: COZAAR PO SCH (10:54)
--- NOTE | 2019-05-02 13:23 | Progress Note ---
Assessment and Plan Assessment and plan: Acute bronchitis. Continue IV antibiotics. Acute HFpEF. A repeat echocardiogram this admission reports a normal LVEF 50- 55%. Cardiology following. Hypertension. Continue antihypertensive medications. Hx of [place]/CAD with 3v CABG in 2017 History Interval history: No new issues overnight. Hospitalist Physical - Constitutional Vitals: Temp Pulse Resp BP Pulse Ox 97.9 F 73 18 140/67 99 05/02/19 12:01 05/02/19 12:01 05/02/19 12:01 05/02/19 12:01 05/02/19 12:01 General appearance: Present: no acute distress, well-nourished - EENT Eyes: Present: PERRL, EOM intact ENT: hearing intact, clear oral mucosa, dentition normal - Neck Neck: Present: supple, normal ROM - Respiratory Respiratory effort: normal Respiratory: bilateral: CTA - Cardiovascular Rhythm: regular Heart Sounds: Present: S1 & S2. Absent: gallop, rub - Extremities Extremities: no ischemia, No edema, Full ROM - Abdominal General gastrointestinal: soft, non-tender, non-distended, normal bowel sounds - Integumentary Integumentary: Present: clear, warm, dry - Neurologic Neurologic: CNII-XII intact, moves all extremities Results - Labs CBC & Chem 7: 05/01/19 05:30 05/02/19 06:45 Labs: Laboratory Last Values WBC 4.1 K/mm3 (4.5-11.0) L 05/01/19 05:30 RBC 4.50 M/mm3 (3.65-5.03) 05/01/19 05:30 Hgb 10.7 gm/dl (10.1-14.3) 05/01/19 05:30 Hct 33.9 % (30.3-42.9) 05/01/19 05:30 MCV 75 fl (79-97) L 05/01/19 05:30 MCH 24 pg (28-32) L 05/01/19 05:30 MCHC 32 % (30-34) 05/01/19 05:30 RDW 16.4 % (13.2-15.2) H 05/01/19 05:30 Plt Count 200 K/mm3 (140-440) 05/01/19 05:30 Lymph % (Auto) 34.5 % (13.4-35.0) 05/01/19 05:30 [place] % (Auto) 11.9 % (0.0-7.3) H 05/01/19 05:30 Eos % (Auto) 3.9 % (0.0-4.3) 05/01/19 05:30 Baso % (Auto) 0.7 % (0.0-1.8) 05/01/19 05:30 Lymph # 1.4 K/mm3 (1.2-5.4) 05/01/19 05:30 [place] # 0.5 K/mm3 (0.0-0.8) 05/01/19 05:30 Eos # 0.2 K/mm3 (0.0-0.4) 05/01/19 05:30 Baso # 0.0 K/mm3 (0.0-0.1) 05/01/19 05:30 Seg Neutrophils % 49.0 % (40.0-70.0) 05/01/19 05:30 Seg Neutrophils # 2.0 K/mm3 (1.8-7.7) 05/01/19 05:30 Sodium 140 mmol/L (137-145) 05/02/19 06:45 Potassium 4.5 mmol/L (3.6-5.0) 05/02/19 06:45 Chloride 100.1 mmol/L (98-107) 05/02/19 06:45 Carbon Dioxide 28 mmol/L (22-30) 05/02/19 06:45 16 mmol/L 05/02/19 06:45 BUN 23 mg/dL (7-17) H 05/02/19 06:45 1.2 mg/dL (0.7-1.2) 05/02/19 06:45 Estimated GFR 55 ml/min 05/02/19 06:45 19 % 05/02/19 06:45 Glucose 218 mg/dL (65-100) H 05/02/19 06:45 POC Glucose 292 (70-105) H 05/02/19 12:08 Calcium 9.2 mg/dL (8.4-10.2) 05/02/19 06:45 0.30 mg/dL (0.1-1.2) 04/30/19 06:28 AST 34 units/L (5-40) 04/30/19 06:28 ALT 32 units/L (7-56) 04/30/19 06:28 89 units/L (35-129) 04/30/19 06:28 < 0.010 ng/mL (0.00-0.029) 04/30/19 13:52 NT-Pro-B Natriuret Pep 3031 pg/mL (0-900) H 04/30/19 06:28 7.1 g/dL (6.3-8.2) 04/30/19 06:28 3.6 g/dL (3.9-5) L 04/30/19 06:28 1.0 % 04/30/19 06:28 Straw (Yellow) 04/30/19 08:39 Clear (Clear) 04/30/19 08:39 6.0 (5.0-7.0) 04/30/19 08:39 Ur Specific [place] 1.009 (1.003-1.030) 04/30/19 08:39 <15 mg/dl mg/dL (Negative) 04/30/19 08:39 Neg mg/dL (Negative) 04/30/19 08:39 Neg mg/dL (Negative) 04/30/19 08:39 Neg (Negative) 04/30/19 08:39 Neg (Negative) 04/30/19 08:39 Neg (Negative) 04/30/19 08:39 < 2.0 mg/dL (<2.0) 04/30/19 08:39 Ur Leukocyte Esterase Neg (Negative) 04/30/19 08:39 < 1.0 /HPF (0.0-6.0) 04/30/19 08:39 1.0 /HPF (0.0-6.0) 04/30/19 08:39 Active Medications - Current Medications Current Medications: Generic Name Dose Route Start Last Admin Trade Name Freq PRN Reason Stop Dose Admin Acetaminophen 650 mg 04/30/19 09:32 04/30/19 19:48 Tylenol PO 650 mg Q4H PRN Administration Pain MILD(1-3)/Fever >100.5/CALIXTO Al Hydrox/Mg Hydrox/Simethicone 30 ml 04/30/19 10:00 Alum-Mag Hydrox-Simeth 659-827-06gl/5ml PO Q4H PRN Indigestion Albuterol 2.5 mg 04/30/19 20:00 05/02/19 08:03 Proventil IH 2.5 mg TIDRT NASRIN Administration Aspirin 81 mg 05/01/19 10:00 05/02/19 10:54 Baby Aspirin PO 81 mg QDAY NASRIN Administration Atorvastatin Calcium 20 mg 04/30/19 22:00 05/01/19 21:47 Lipitor PO 20 mg QHS NASRIN Administration Clopidogrel Bisulfate 75 mg 04/30/19 11:00 05/02/19 10:53 Plavix PO 75 mg QDAY NASRIN Administration Dextrose 50 ml 04/30/19 09:32 D50w (25gm) Syringe IV PRN PRN Hypoglycemia Enoxaparin Sodium 40 mg 04/30/19 12:00 05/02/19 10:53 Lovenox SUB-Q 40 mg QDAY NASRIN Administration Furosemide 20 mg 04/30/19 18:00 05/02/19 05:19 Lasix IV 20 mg BID@0600,1800 NASRIN Administration Azithromycin 500 mg/ Sodium 250 mls @ 250 mls/hr 04/30/19 19:00 05/02/19 10:53 Chloride IV 05/04/19 23:59 250 mls/hr Q24HR NASRIN Administration Protocol Insulin Human Lispro 0 unit 04/30/19 22:00 05/02/19 12:30 Humalog SUB-Q 4 unit ACHS NASRIN Administration Protocol Losartan Potassium 50 mg 05/01/19 10:00 05/02/19 10:54 Cozaar PO 50 mg QDAY NASRIN Administration Metoprolol Tartrate 50 mg 04/30/19 11:00 05/02/19 10:54 Lopressor PO 50 mg BID NASRIN Administration Morphine Sulfate 2 mg 04/30/19 09:32 Morphine IV Q4H PRN Pain, Moderate (4-6) Naloxone HCl 0.1 mg 04/30/19 09:32 Narcan 0.4 Mg/1 Ml IV Q2MIN PRN Res Rate </= 8 or 02 SAT < 92% Nitroglycerin 0.4 mg 04/30/19 09:32 Nitrostat SL .Q5MIN PRN Chest Pain Ondansetron HCl 4 mg 04/30/19 09:32 Zofran IV Q8H PRN Nausea And Vomiting Oxycodone/Acetaminophen 1 tab 04/30/19 11:00 05/01/19 11:38 Percocet 5/325 PO 1 tab Q6H PRN Administration Pain, Moderate (4-6) Pantoprazole Sodium 40 mg 04/30/19 11:00 05/02/19 10:54 Protonix PO 40 mg QDAY NASRIN Administration Potassium Chloride 10 meq 04/30/19 11:00 05/02/19 10:54 K-Dur PO 10 meq BID NASRIN Administration Sertraline HCl 50 mg 04/30/19 22:00 05/01/19 21:47 Zoloft PO 50 mg HS NASRIN Administration Sodium Chloride 10 ml 04/30/19 10:00 05/02/19 10:55 Sodium Chloride Flush Syringe 10 Ml IV 10 ml BID NASRIN Administration Sodium Chloride 10 ml 04/30/19 09:32 Sodium Chloride Flush Syringe 10 Ml IV PRN PRN LINE FLUSH Zolpidem Tartrate 5 mg 04/30/19 22:00 Ambien PO QHS PRN Insomnia
[2019-05-02] MEDS: PERCOCET 5/325 PO PRN (16:31)
[2019-05-02] MEDS: ZOLOFT PO SCH (21:52)
[2019-05-03] MEDS: LASIX IV SCH ×2 (05:00→18:08)
[2019-05-03 06:51] LABS: INR 1.05 (0.87-1.13)
[2019-05-03 06:57] LABS: Calcium 9.4 mg/dL (8.4-10.2)
[2019-05-03] MEDS: HumaLOG SUB-Q SCH ×4 (08:17→21:40)
[2019-05-03] MEDS: K-DUR PO SCH (10:24)
[2019-05-03] MEDS: ZITHROMAX 500 MG in NACL 0.9% 250ML 250 ML IV SCH (10:30)
[2019-05-03] MEDS: SODIUM CHLORIDE FLUSH SYRINGE 10 ML IV SCH ×2 (10:30→21:40)
[2019-05-03] MEDS: PROTONIX PO SCH (10:47)
[2019-05-03] MEDS: PROVENTIL IH SCH ×3 (10:48→20:29)
[2019-05-03] MEDS ORDERED: CALAN ONE (10:49)
[2019-05-03] MEDS ORDERED: HEPARIN/NS 5000 UNIT/500ML(CATH LAB) 1,000 ML IR ONE (10:49)
[2019-05-03] MEDS ORDERED: HEPARIN 10,000 UNITS/10 ML ONE (10:49)
[2019-05-03] MEDS ORDERED: VERSED ONE (10:50)
[2019-05-03] MEDS ORDERED: XYLOCAINE 2% INFILTRATI ONE (10:50)
[2019-05-03] MEDS ORDERED: NITROGLYCERIN SYRINGE 0 ML ONE (10:50)
[2019-05-03] MEDS ORDERED: SUBLIMAZE ONE (10:51)
[2019-05-03] MEDS ORDERED: NACL 0.9% 500 ML 500 ML ONE (11:10)
--- NOTE | 2019-05-03 11:46 | Progress Note ---
Assessment and Plan Assessment and plan: Acute bronchitis. Continue IV antibiotics. Acute HFpEF. A repeat echocardiogram this admission reports a normal LVEF 50- 55%. Cardiology reports the patient has a history of fairly aggressive coronary artery disease, status post three-vessel coronary bypass 2 years ago. Cardiology to proceed with diagnostic coronary angiography to evaluate for ischemic etiology of heart failure. Hypertension. Continue antihypertensive medications. Hx of [place]/CAD with 3v CABG in 2017 History Interval history: No new issues overnight. Hospitalist Physical - Constitutional Vitals: Temp Pulse Resp BP Pulse Ox 98.0 F 72 18 133/71 95 05/03/19 04:46 05/03/19 10:00 05/03/19 04:46 05/03/19 08:56 05/03/19 08:56 General appearance: Present: no acute distress, well-nourished - EENT Eyes: Present: PERRL, EOM intact ENT: hearing intact, clear oral mucosa, dentition normal - Neck Neck: Present: supple, normal ROM - Respiratory Respiratory effort: normal Respiratory: bilateral: CTA - Cardiovascular Rhythm: regular Heart Sounds: Present: S1 & S2. Absent: gallop, rub - Extremities Extremities: no ischemia, No edema, Full ROM - Abdominal General gastrointestinal: soft, non-tender, non-distended, normal bowel sounds - Integumentary Integumentary: Present: clear, warm, dry - Neurologic Neurologic: CNII-XII intact, moves all extremities Results - Labs CBC & Chem 7: 05/01/19 05:30 05/03/19 05:12 Labs: Laboratory Last Values WBC 4.1 K/mm3 (4.5-11.0) L 05/01/19 05:30 RBC 4.50 M/mm3 (3.65-5.03) 05/01/19 05:30 Hgb 10.7 gm/dl (10.1-14.3) 05/01/19 05:30 Hct 33.9 % (30.3-42.9) 05/01/19 05:30 MCV 75 fl (79-97) L 05/01/19 05:30 MCH 24 pg (28-32) L 05/01/19 05:30 MCHC 32 % (30-34) 05/01/19 05:30 RDW 16.4 % (13.2-15.2) H 05/01/19 05:30 Plt Count 200 K/mm3 (140-440) 05/01/19 05:30 Lymph % (Auto) 34.5 % (13.4-35.0) 05/01/19 05:30 [place] % (Auto) 11.9 % (0.0-7.3) H 05/01/19 05:30 Eos % (Auto) 3.9 % (0.0-4.3) 05/01/19 05:30 Baso % (Auto) 0.7 % (0.0-1.8) 05/01/19 05:30 Lymph # 1.4 K/mm3 (1.2-5.4) 05/01/19 05:30 [place] # 0.5 K/mm3 (0.0-0.8) 05/01/19 05:30 Eos # 0.2 K/mm3 (0.0-0.4) 05/01/19 05:30 Baso # 0.0 K/mm3 (0.0-0.1) 05/01/19 05:30 Seg Neutrophils % 49.0 % (40.0-70.0) 05/01/19 05:30 Seg Neutrophils # 2.0 K/mm3 (1.8-7.7) 05/01/19 05:30 PT 13.4 Sec. (12.2-14.9) 05/03/19 05:12 INR 1.05 (0.87-1.13) 05/03/19 05:12 Sodium 137 mmol/L (137-145) 05/03/19 05:12 Potassium 5.0 mmol/L (3.6-5.0) 05/03/19 05:12 Chloride 102.9 mmol/L (98-107) 05/03/19 05:12 Carbon Dioxide 22 mmol/L (22-30) 05/03/19 05:12 17 mmol/L 05/03/19 05:12 BUN 23 mg/dL (7-17) H 05/03/19 05:12 1.3 mg/dL (0.7-1.2) H 05/03/19 05:12 Estimated GFR 50 ml/min 05/03/19 05:12 18 % 05/03/19 05:12 Glucose 189 mg/dL (65-100) H 05/03/19 05:12 POC Glucose 188 (70-105) H 05/03/19 06:01 Calcium 9.4 mg/dL (8.4-10.2) 05/03/19 05:12 0.30 mg/dL (0.1-1.2) 04/30/19 06:28 AST 34 units/L (5-40) 04/30/19 06:28 ALT 32 units/L (7-56) 04/30/19 06:28 89 units/L (35-129) 04/30/19 06:28 < 0.010 ng/mL (0.00-0.029) 04/30/19 13:52 NT-Pro-B Natriuret Pep 3031 pg/mL (0-900) H 04/30/19 06:28 7.1 g/dL (6.3-8.2) 04/30/19 06:28 3.6 g/dL (3.9-5) L 04/30/19 06:28 1.0 % 04/30/19 06:28 Straw (Yellow) 04/30/19 08:39 Clear (Clear) 04/30/19 08:39 6.0 (5.0-7.0) 04/30/19 08:39 Ur Specific [place] 1.009 (1.003-1.030) 04/30/19 08:39 <15 mg/dl mg/dL (Negative) 04/30/19 08:39 Neg mg/dL (Negative) 04/30/19 08:39 Neg mg/dL (Negative) 04/30/19 08:39 Neg (Negative) 04/30/19 08:39 Neg (Negative) 04/30/19 08:39 Neg (Negative) 04/30/19 08:39 < 2.0 mg/dL (<2.0) 04/30/19 08:39 Ur Leukocyte Esterase Neg (Negative) 04/30/19 08:39 < 1.0 /HPF (0.0-6.0) 04/30/19 08:39 1.0 /HPF (0.0-6.0) 04/30/19 08:39 Active Medications - Current Medications Current Medications: Generic Name Dose Route Start Last Admin Trade Name Freq PRN Reason Stop Dose Admin Acetaminophen 650 mg 04/30/19 09:32 04/30/19 19:48 Tylenol PO 650 mg Q4H PRN Administration Pain MILD(1-3)/Fever >100.5/[place] Al Hydrox/Mg Hydrox/Simethicone 30 ml 04/30/19 10:00 Alum-Mag Hydrox-Simeth 986-251-76uc/5ml PO Q4H PRN Indigestion Albuterol 2.5 mg 04/30/19 20:00 05/03/19 10:48 Proventil IH Not Given TIDRT NASRIN Aspirin 81 mg 05/01/19 10:00 05/02/19 10:54 Baby Aspirin PO 81 mg QDAY NASRIN Administration Atorvastatin Calcium 20 mg 04/30/19 22:00 05/02/19 21:52 Lipitor PO 20 mg QHS NASRIN Administration Clopidogrel Bisulfate 75 mg 04/30/19 11:00 05/02/19 10:53 Plavix PO 75 mg QDAY NASRIN Administration Dextrose 50 ml 04/30/19 09:32 D50w (25gm) Syringe IV PRN PRN Hypoglycemia Furosemide 20 mg 04/30/19 18:00 05/03/19 05:00 Lasix IV 20 mg BID@0600,1800 NASRIN Administration Azithromycin 500 mg/ Sodium 250 mls @ 250 mls/hr 04/30/19 19:00 05/03/19 10:30 Chloride IV 05/04/19 23:59 250 mls/hr Q24HR NASRIN Administration Protocol Insulin Human Lispro 0 unit 04/30/19 22:00 05/03/19 08:17 Humalog SUB-Q Not Given ACHS [facility] Protocol Losartan Potassium 50 mg 05/01/19 10:00 05/02/19 10:54 Cozaar PO 50 mg QDAY NASRIN Administration Metoprolol Tartrate 50 mg 04/30/19 11:00 05/02/19 21:52 Lopressor PO 50 mg BID NASRIN Administration Morphine Sulfate 2 mg 04/30/19 09:32 Morphine IV Q4H PRN Pain, Moderate (4-6) Naloxone HCl 0.1 mg 04/30/19 09:32 Narcan 0.4 Mg/1 Ml IV Q2MIN PRN Res Rate </= 8 or 02 SAT < 92% Nitroglycerin 0.4 mg 04/30/19 09:32 Nitrostat SL .Q5MIN PRN Chest Pain Ondansetron HCl 4 mg 04/30/19 09:32 Zofran IV Q8H PRN Nausea And Vomiting Oxycodone/Acetaminophen 1 tab 04/30/19 11:00 05/02/19 16:31 Percocet 5/325 PO 1 tab Q6H PRN Administration Pain, Moderate (4-6) Pantoprazole Sodium 40 mg 04/30/19 11:00 05/03/19 10:47 Protonix PO Not Given QDAY NASRIN Sertraline HCl 50 mg 04/30/19 22:00 05/02/19 21:52 Zoloft PO 50 mg HS NASRIN Administration Sodium Chloride 10 ml 04/30/19 10:00 05/03/19 10:30 Sodium Chloride Flush Syringe 10 Ml IV 10 ml BID NASRIN Administration Sodium Chloride 10 ml 04/30/19 09:32 Sodium Chloride Flush Syringe 10 Ml IV PRN PRN LINE FLUSH Zolpidem Tartrate 5 mg 04/30/19 22:00 Ambien PO QHS PRN Insomnia
--- NOTE | 2019-05-03 12:09 | Progress Note ---
Assessment and Plan Acute diastolic heart failure - resolved Hypertension Hx of [place]/CAD with 3v CABG in 2017 [facility] this admission showing patent SVG to OM and patent SVG to RCA. The [place] to LAD is atretic however the [place] LAD has non-obstructive disease LVEF 40-45% with inferior wall hypokinesis LVEDP 13 mm Hg Recommendations: Continue medical therapy May go home today on po lasix 20 mg daily Follow-up with primary pharmacy technician program director in 1 week Subjective Date of service: 05/03/19 Principal diagnosis: Acute heart failure Interval history: Patient underwent a C today without complications Objective Vital Signs Temp Pulse Pulse Resp Resp BP Pulse Ox 05/03/19 10:00 72 05/03/19 08:56 69 133/71 95 05/03/19 04:46 98.0 F 73 18 136/68 97 05/02/19 23:21 98.0 F 81 20 139/68 99 05/02/19 20:52 97.7 F 81 20 135/60 96 05/02/19 20:35 74 16 05/02/19 20:00 75 05/02/19 17:10 71 169/72 93 - Physical Examination General: No Apparent Distress HEENT: Positive: PERRL Neck: Positive: trachea midline Cardiac: Positive: Reg Rate and Rhythm Lungs: Positive: Normal Exam Neuro: Positive: Grossly Intact Extremities: Absent: edema - Labs and Meds Coagulation 05/03/19 Range/Units 05:12 PT 13.4 (12.2-14.9) Sec. INR 1.05 (0.87-1.13) Comprehensive Metabolic Panel 05/03/19 Range/Units 05:12 Sodium 137 (137-145) mmol/L Potassium 5.0 (3.6-5.0) mmol/L Chloride 102.9 (98-107) mmol/L Carbon Dioxide 22 (22-30) mmol/L BUN 23 H (7-17) mg/dL Creatinine 1.3 H (0.7-1.2) mg/dL Glucose 189 H (65-100) mg/dL Calcium 9.4 (8.4-10.2) mg/dL - Imaging and Cardiology EKG: image reviewed
[2019-05-03] MEDS: BABY ASPIRIN PO SCH (13:35)
[2019-05-03] MEDS: LOPRESSOR PO SCH ×2 (13:35→21:39)
[2019-05-03] MEDS: COZAAR PO SCH (13:35)
[2019-05-03] MEDS: PLAVIX PO SCH (13:35)
[2019-05-03] MEDS: ZOLOFT PO SCH (21:39)
[2019-05-04] MEDS ORDERED: PROVENTIL IH PRN (01:13)
[2019-05-04] MEDS: LASIX IV SCH (05:57)
[2019-05-04] MEDS: HumaLOG SUB-Q SCH ×2 (08:53→12:21)
--- NOTE | 2019-05-04 09:25 | Cardiac Catherization Report ---
LEFT HEART CATHETERIZATION ORDERING PHYSICIAN: Fay Chavira MD INDICATION: Acute heart failure. PROCEDURES PERFORMED: Selective left and right coronary angiography, left ventriculography, selective angiography of the [place] to LAD graft, selective angiography of the saphenous vein graft to the OM and selective angiography of the saphenous vein graft to the right coronary artery. DESCRIPTION OF PROCEDURE: After obtaining the consent, the patient was draped using sterile technique. Using micropuncture technique, a 5-Ind[place]ian vascular sheath was inserted into the right femoral artery. A 5-[place] JL4 catheter was used to selectively engage left coronary artery. A 5-[place] JR4 catheter was used to selectively engage the right coronary artery. A 5-[place] JR4 catheter was used to selectively engage the saphenous vein graft to the obtuse marginal, the saphenous vein graft to the right coronary artery and the [place] graft to the LAD. A 5-Ind[place] JR4 catheter was used to hand inject the left ventriculogram. No complications occurred during the procedure. Hemostasis was achieved at the end of the procedure using a 5-Indonesian Mynx nutter up device SPECIMEN REMOVED: None. ESTIMATED BLOOD LOSS: Minimal. TOTAL SEDATION ADMINISTERED: A 1 mg of IV Versed and 25 mcg of IV fentanyl. PHYSICIAN AND PATIENT [id number] SEDATION START TIME: 11:23 a.m. PHYSICIAN AND PATIENT [id number] SEDATION STOP TIME: 11:42 a.m. Total sedation time was 19 minutes. FINDINGS: HEMODYNAMICS: Aortic pressure 123/44. LV systolic pressure 122 mmHg, LV end diastolic pressure 13 mmHg. No significant gradient was noted across the left ventricular outflow tract. CARDIAC STRUCTURES: The left ventricular cavity is normal in size. Left ventricular ejection fraction is estimated between 40% and 45%. There is hypokinesis of the basal and mid inferior wall noted. CORONARY ANATOMY: 1. This is a right dominant circulation. 2. The left main has a diffuse 30% stenosis. 3. The left anterior descending artery has evidence of mid 40% tubular stenosis. There is also a distal focal 40% stenosis of the LAD. There is no evidence of obstructive disease noted in the [place] LAD. 4. The left circumflex artery has evidence of a stent in the mid segment of the first obtuse marginal. There is an 80% in-stent restenosis within the stent. There is competitive flow noted distal to the stent. 5. The right coronary artery has an ostial and proximal stent that is patent. The right coronary artery has a 90% mid segment stenosis. The distal right coronary artery, PDA and PLV are small in caliber vessels. 6. The saphenous vein graft to the obtuse marginal is patent with good distal vessel run-off. 7. The saphenous vein graft to the distal right coronary artery is patent with good distal vessel run-off. 8. The [place] to the LAD is a very small atretic vessel, likely due to the competitive flow from the nonobstructive [place] LAD. IMPRESSION: 1. Nonobstructive disease noted within the [place] left anterior descending. Therefore, the left internal mammary artery to the left anterior descending graft is atretic. 2. The patent saphenous vein graft to the obtuse marginal with good distal vessel runoff distal to an obtuse marginal stent with 80% in-stent restenosis. The saphenous vein graft to the distal right coronary artery is patent with good distal vessel run-off. 3. Mild left ventricular dysfunction with an ejection fraction estimated between 40% and 45% and evidence of basal and mid inferior wall hypokinesis. 4. Left ventricular end-diastolic pressure measured at 13 mmHg. RECOMMENDATIONS: Continue current medical therapy. The [place] to LAD is atretic, yet the [place] LAD has nonobstructive disease. The other grafts are patent with good distal vessel run-off. JOB# [id number] KIMBERLY/TAMMY
--- NOTE | 2019-05-04 10:21 | Progress Note ---
Assessment and Plan Acute diastolic heart failure - resolved Hypertension Hx of [place]/CAD with 3v CABG in 2017 [facility] this admission showing patent SVG to OM and patent SVG to RCA. The [place] to LAD is atretic however the [place] LAD has non-obstructive disease LVEF 40-45% with inferior wall hypokinesis LVEDP 13 mm Hg Recommendations: Continue medical therapy May go home today on po lasix 20 mg daily Follow-up with primary inspector hairspring truing in 1 week Subjective Date of service: 05/04/19 Principal diagnosis: Acute heart failure Interval history: No complaints Right groin is soft with no bruits Objective Vital Signs Temp Pulse Pulse Pulse Pulse Pulse Resp 05/04/19 07:41 98.1 F 73 18 05/04/19 04:36 98.0 F 73 18 05/04/19 01:07 05/03/19 23:50 98.0 F 76 18 05/03/19 21:39 79 05/03/19 20:49 79 18 05/03/19 20:35 81 05/03/19 19:06 97.8 F 79 18 05/03/19 16:53 79 05/03/19 16:36 76 80 05/03/19 16:35 98.2 F 72 18 05/03/19 15:00 78 18 05/03/19 14:30 80 18 05/03/19 14:00 82 18 05/03/19 13:35 84 05/03/19 13:33 84 18 Resp Resp BP BP BP Pulse Ox 05/04/19 07:41 145/77 94 05/04/19 04:36 147/63 97 05/04/19 01:07 97 05/03/19 23:50 123/55 98 05/03/19 21:39 125/60 05/03/19 20:49 98 05/03/19 20:35 05/03/19 19:06 125/60 98 05/03/19 16:53 131/62 05/03/19 16:36 18 18 05/03/19 16:35 135/60 96 05/03/19 15:00 122/66 98 05/03/19 14:30 130/65 97 05/03/19 14:00 132/65 97 05/03/19 13:35 127/66 05/03/19 13:33 127/66 95 - Physical Examination General: No Apparent Distress HEENT: Positive: PERRL Neck: Positive: trachea midline Cardiac: Positive: Reg Rate and Rhythm Lungs: Positive: Normal Exam Neuro: Positive: Grossly Intact Abdomen: Positive: Soft Extremities: Absent: edema - Imaging and Cardiology EKG: image reviewed
--- NOTE | 2019-05-04 10:22 | Discharge Summary ---
Providers - Providers Date of Admission: 04/30/19 07:28 Date of discharge: 05/04/19 Attending physician: JENNIFER DIAZ 04/30/19 07:17 Consult to Physician [CONS] Urgent Comment: DR KAUSHIK JUNIOR W/DR WING @[id number] Consulting Provider: KASHMIR WING Physician Instructions: Reason For Exam: cp, chf, hx of cabg x 3, cardiac stent x 2 05/02/19 10:29 Consult to Case Management [CONS] Routine Services Needed at Discharge: Other Notified:: sandra Primary care physician: RIDING DOUBLE Hospitalization Reason for admission: sob Condition: Stable Hospital course: 63-year-old woman with a history of coronary artery disease, three-vessel coronary artery bypass 2 years ago, presented with shortness of breath. Chest x-ray showed cardiomegaly and interstitial opacities right greater than left, suspicious for acute pulmonary edema. EKG was normal sinus rhythm, with no ST-T wave changes. Review of her records show that before her bypass, left ventricular ejection fraction was 40-45% in May 2017, following her bypass surgery in February 2018 the ejection fraction reported a resolving cardiomyopathy at 55%, within normal limits. The patient was admitted with diagnosis of acute diastolic heart failure and hypoxemic respiratory failure. Cardiology was consulted and recommended heart failure therapy to include diuretics, afterload agents, oral antiplatelet therapy, nitrates and beta blockers as tolerated. Echocardiogram was done for left ventricular function assessment. Echocardiogram revealed left ventricular systolic function is normal with no severe valvular abnormalities. Cardiology felt the need to proceed with diagnostic coronary angiography to evaluate for an ischemic basis for heart fa ilure. Patient apparently had fairly aggressive coronary artery disease in the past. Therefore, LHC was completed on 05/03/19 that revealed patent SVG to OM and patent SVG to RCA. The [place] to LAD is atretic however the [place] LAD has non-obstructive. Cardiology recommended to continue medical therapy and add Lasix 20 mg daily. Desiccated discharge time 32 minutes. Disposition: -01 TO HOME OR SELFCARE Time spent for discharge: 32 - Discharge Diagnoses (1) CHF exacerbation Status: Acute (2) Combined hyperlipidemia Status: Acute (3) Dyspnea Status: Acute (4) HTN (hypertension), malignant Status: Acute (5) S/P CABG x 3 Status: Acute (6) CAD (coronary artery disease) Status: Acute (7) Status post cardiac catheterization Status: Acute Core Measure Documentation - Palliative Care Palliative Care/ Comfort Measures: Not Applicable - Core Measures Any of the following diagnoses?: heart failure - Heart Failure Discharge Requirements NIRMALA/ARB for LVSD if EF <40%: Yes Beta jose juan at discharge: Yes Exam - Constitutional Vitals: Temp Pulse Resp BP Pulse Ox 98.1 F 73 18 145/77 94 05/04/19 07:41 05/04/19 07:41 05/04/19 07:41 05/04/19 07:41 05/04/19 07:41 General appearance: Present: no acute distress, well-nourished - EENT Eyes: Present: PERRL ENT: hearing intact, clear oral mucosa - Neck Neck: Present: supple, normal ROM - Respiratory Respiratory effort: normal Respiratory: bilateral: CTA - Cardiovascular Heart Sounds: Present: S1 & S2. Absent: rub, click - Extremities Extremities: pulses symmetrical, No edema Peripheral Pulses: within normal limits - Abdominal General gastrointestinal: Present: soft, non-tender, non-distended, normal bowel sounds Female genitourinary: Present: normal - Integumentary Integumentary: Present: clear, warm, dry - Musculoskeletal Musculoskeletal: gait normal, strength equal bilaterally - Psychiatric Psychiatric: appropriate mood/affect, intact judgment & insight - Neurologic Neurologic: CNII-XII intact, moves all extremities Plan Activity: advance as tolerated Weight Bearing Status: Weight Bear as Tolerated Diet: low fat, low cholesterol, low salt Follow up with: PRIMARY CAREMD [Primary Care Provider] - 3-5 Days KRISTINE CLAROS MD [Staff Physician] - 7 Days Prescriptions: Zolpidem [Ambien] 5 mg PO QHS PRN #10 tablet PRN Reason: Insomnia Aspirin [Aspirin BABY CHEW TAB] 81 mg PO QDAY #30 tab.chew Losartan [Cozaar] 50 mg PO BID #60 tablet Furosemide [Lasix TAB] 20 mg PO QDAY #30 tablet AtorvaSTATin [Lipitor] 20 mg PO QHS #30 tablet Metoprolol [Lopressor TAB] 50 mg PO BID #60 tablet Metformin HCl [metFORMIN ER Gastric] 500 mg PO QDAY #30 [id number] oxyCODONE /ACETAMINOPHEN [Percocet 5/325 mg] 1 tab PO Q6H PRN #8 tablet PRN Reason: Pain, Moderate (4-6) Clopidogrel [Plavix] 75 mg PO QDAY #30 tablet Pantoprazole [Protonix TAB] 40 mg PO QDAY #30 tablet Sertraline [Zoloft] 50 mg PO HS #30 tablet
[2019-05-04] MEDS: BABY ASPIRIN PO SCH (10:28)
[2019-05-04] MEDS: LOPRESSOR PO SCH (10:28)
[2019-05-04] MEDS: ZITHROMAX 500 MG in NACL 0.9% 250ML 250 ML IV SCH (10:28)
[2019-05-04] MEDS: PLAVIX PO SCH (10:28)
[2019-05-04] MEDS: COZAAR PO SCH (10:28)
[2019-05-04] MEDS: PROTONIX PO SCH (10:31)
[2019-05-04] MEDS: SODIUM CHLORIDE FLUSH SYRINGE 10 ML IV SCH (10:31)
[2019-05-04 11:44] VITALS: BP 127/66
[2019-05-05] MEDS ORDERED: LASIX PO SCH (10:00)
== END 2019-05-04 13:35 | disposition home or self-care (01) | DRG 286 ==
LOC: ED 04:03 → 4A 07:28
PROVIDERS: ADMIT Internal Medicine; ATTEND Hospitalist
PROC: 4A023N7 Measurement of Cardiac Sampling and Pressure, Left Heart, Percutaneous Approach (ICD-10-PCS; principal; 2019-05-03)
PROC: B2111ZZ Fluoroscopy of Multiple Coronary Arteries using Low Osmolar Contrast (ICD-10-PCS; 2019-05-03)
PROC: B2151ZZ Fluoroscopy of Left Heart using Low Osmolar Contrast (ICD-10-PCS; 2019-05-03)
PROC: B2131ZZ Fluoroscopy of Multiple Coronary Artery Bypass Grafts using Low Osmolar Contrast (ICD-10-PCS; 2019-05-03)
PROC: B2181ZZ Fluoroscopy of Left Internal Mammary Bypass Graft using Low Osmolar Contrast (ICD-10-PCS; 2019-05-03)
DX: I11.0 Hypertensive heart disease with heart failure (principal); I50.31 Acute diastolic (congestive) heart failure; J20.9 Acute bronchitis, unspecified; E11.9 Type 2 diabetes mellitus without complications; I25.10 Atherosclerotic heart disease of native coronary artery without angina pectoris; Z79.82 Long term (current) use of aspirin; Z79.84 Long term (current) use of oral hypoglycemic drugs; I25.2 Old myocardial infarction; Z95.5 Presence of coronary angioplasty implant and graft; G43.909 Migraine, unspecified, not intractable, without status migrainosus; E78.2 Mixed hyperlipidemia; Z95.1 Presence of aortocoronary bypass graft; Z82.49 Family history of ischemic heart disease and other diseases of the circulatory system; Z88.8 Allergy status to other drugs, medicaments and biological substances
CPT/HCPCS: 36415; 71045; 71046; 80048; 80053; 81001; 82962; 83880; 84484; 85025; 85610; 93005; 93010; 93306; 93459; 94640; 96374; G0378; A9270-GY; C1760; C1894; J0456; J1644; J1650; J1815; J1940; J2250; J3010; J7040; J7050; Q9967